=== PATIENT | female | born 1980 | race Caucasian/White ===

== ENCOUNTER 2022-07-25 08:14 | Emergency (ER) | payer OTHER, SELFPAY ==
--- NOTE | ~2022-07-25 | CT_ITS ---
EXAMINATION: CT abdomen pelvis wo IV con CLINICAL INFORMATION: Reason for Exam r flank pain, hematuria, r/o colic COMPARISON: No prior CT available for comparison. TECHNIQUE: Multidetector volumetric imaging was performed from the superior aspect of the liver through the pubic symphysis noncontrasted study Sagittal and coronal reformatted images were obtained on the technologist's workstation. This CT examination was performed using dose optimization techniques as appropriate, variously including the following: *Automated exposure control *Adjustment of mA and/or kV according to patient size (this includes techniques or standardized protocols for targeted exams where dose is matched to indication/reason for exam; i.e. extremities or head) *Use of iterative reconstruction technique DLP: 598 mGy-cm FINDINGS: LOWER THORAX: Included lung bases are clear. HEPATOBILIARY: No focal hepatic lesions. No biliary ductal dilatation. GALLBLADDER: Gallbladder unremarkable. SPLEEN: Spleen is normal in size. PANCREAS: No focal mass or ductal dilatation. STOMACH AND GASTROINTESTINAL TRACT: Postsurgical changes partial gastrectomy. Stomach is decompressed. There is no bowel distention or thickening. No CT evidence of appendicitis. ADRENALS: No adrenal nodules. KIDNEYS/URETERS: No hydronephrosis, stones or solid mass lesions. URINARY BLADDER: Partially decompressed. PELVIC VISCERA: There is an IUD in the uterus otherwise unremarkable, no free air or fluid. Rectum and perirectal fat are clear. PERITONEUM: No free air or fluid. LYMPH NODES: No lymphadenopathy. VASCULAR:Abdominal aorta normal in size, no aneurysm found. BONES, ABDOMINAL WALL AND SOFT TISSUES: Age-appropriate changes of the spine and skeletal system, no destructive osteolytic or osteosclerotic bone lesion found CT/CT abdomen pelvis wo IV con IMPRESSION: * No CT evidence of kidney stones or hydronephrosis. * No CT evidence of acute intra-abdominal process to explain patient's pain symptoms. * Postsurgical changes partial gastrectomy. * IUD in the uterus.
[2022-07-25 08:22] VITALS: BP 146/81; PULSE 83; RESP 18; TEMP 35.9; O2SAT 100; BMI 33.8
[2022-07-25 08:57] LABS: Appearance Urine Clear; Color Urine Yellow; Glucose Urine UA Negative (Negative); Leukocyte Esterase Urine Trace (Negative); Nitrite Urine Negative (Negative); PH 6.5 (5.0-9.0); Specific Gravity - Urine 1.025 (1.005-1.025); UMIC TRIGGER UACC YES; Urine Blood Large (3+) (Negative); Urine Ketones Negative (Negative); Urine Protein Negative (Neg-Trace)
[2022-07-25 08:59] LABS: Bacteria Urine Trace (None Seen); Hyaline Casts Urine 0-2 /LPF (0-2); RBC Urine >20 /HPF (0-2); WBC Urine 0-5 /HPF (0-5)
--- NOTE | 2022-07-25 09:19 | ED.BACK ---
HPI - Back Pain/Injury General Chief Complaint: Back Pain/Injury Stated Complaint: upper back pain Time Seen by Provider: 07/25/22 09:07 Source: patient Mode of arrival: ambulatory Limitations: no limitations History of Present Illness HPI Narrative: 39-year-old female healthy here with right flank pain since 02:00 with no nausea, vomiting, diarrhea, constipation, fevers, urinary symptoms. Patient denies chance of . Patient currently has IUD. Patient with no history of renal colic, pyelonephritis Related Data Previous Rx's Medication Instructions Recorded acetaminophen 325 mg tablet 650 mg PO Q4H PRN pain #30 tabs 07/25/22 (Tylenol) cyclobenzaprine 10 mg tablet 10 mg PO TID PRN muscle spasm #10 07/25/22 tabs lidocaine 5 % topical patch 1 patch topical DAILY #15 ea 07/25/22 (Lidoderm) Allergies Allergy/AdvReac Type Severity Reaction Status Date / Time No Known Allergies Allergy Unverified 04/09/20 19:43 [No Known Allergies*] Review of Systems Review of Systems: Yes all other systems are reviewed and are negative Constitutional: Constitutional: Reports no additional constitutional complaints, Denies body ache(s), Denies chills, Denies fever(s), Denies headache(s) and Denies weakness Eyes: Eyes: Reports no additional eye complaints and Denies change in vision ENT: Reports system reviewed and no additional complaints, except as documented, Denies dizziness, Denies headache(s), Denies nasal congestion, Denies nasal discharge and Denies neck pain Cardiovascular: Cardiovascular: Reports no additional cardiovascular complaints, Denies chest pain, Denies leg edema and Denies dyspnea Respiratory: Respiratory: Reports no additional respiratory complaints, Denies cough and Denies dyspnea Gastrointestinal: Gastrointestinal: Reports no additional gastrointestinal complaints, Denies abdominal pain, Denies diarrhea, Denies nausea and Denies vomiting Genitourinary: Genitourinary: Reports no additional female genitourinary complaints and Denies urinary incontinence Musculoskeletal: Musculoskeletal: Reports no additional musculoskeletal complaints, Reports back pain, Denies arthralgias, Denies joint swelling, Denies neck pain, Denies numbness and Denies tingling Integumentary/Breasts: Skin/Breast: Reports system reviewed and no additional complaints, except as docu and Denies rash Neurologic: Reports system reviewed and no additional complaints, except as documented, Denies Abnormal speech present, Denies dizziness, Denies headache(s), Denies numbness, Denies tingling and Denies weakness PMFSH Past Medical History Attestation statement: The following information was validated with the patient. Source: old records reviewed and nursing notes reviewed Social History Social History Alcohol intake: never Smoked in Last 30 Days: Yes Use of substances other than those prescribed or required for medical reasons: No Advance Directives: No Advance Directives Information Provided: No Patient : No Physical Exam Vital Signs: Vital Signs: Last Vital Signs Temp 96.7 F L 07/25/22 08:22 Pulse 83 07/25/22 08:22 Resp 18 07/25/22 08:22 BP 146/81 H 07/25/22 08:22 Pulse Ox 100 07/25/22 08:22 O2 Del Method 07/25/22 08:22 BMI result Body Mass Index 33.8 Const: General: cooperative, healthy appearing, comfortable and no acute distress Orientation/consciousness: patient oriented x3 Limitations: no limitations HEENT: Head: Yes normal to inspection Ears: hearing grossly normal bilaterally General nose exam: Normal external nose present Face and sinus: Yes normal facial exam Mouth: Normal oral and palatal mucosa present Throat: Yes posterior oropharynx normal Eyes: General: appearance normal, both eyes and all related structures Pupils: Equal, round and reactive pupils present Neck: Neck: Yes normal visual inspection Chest: Chest palpation & inspection: normal inspection of the chest Resp: Effort & Inspection: normal respiratory effort Auscultation: clear to auscultation bilaterally Cardio: Rate: regular rate Rhythm: regular rhythm Peripheral pulses: Peripheral pulses 2+ throughout GI: Inspection: Yes normal to inspection Palpation (GI): Soft to palpation and nontender Auscultation: normal bowel sounds : General: Yes no CVA tenderness (Right CVA tenderness) Back/Spine/Pelvis: Back: no CVA tenderness (Right CVA tenderness) Thoracic/Lumbar Spine: thoracic and lumbar spine normal to inspection Skin: General skin exam: no rashes or lesions noted Neuro: General: patient oriented x3, no focal motor deficits and normal sensation to monofilament Cranial nerves: Yes Equal, round and reactive pupils present Cognition (Neuro): normal cognition Speech: No Abnormal speech present Gait exam (Neuro): Normal gait present Motor exam (neuro): 5/5 motor strength present throughout Extrem: General: Yes normal to inspection Course Course Course Narrative: CT negative for any acute finding. Labs show microcytic anemia. Patient tells me this is normal for her. She has been anemic since having bariatric surgery several years ago in [place]. She is taking iron supplements. Patient denies any active bleeding. Patient reports she is due to get her menses any day. Microscopic hematuria may be secondary to this. This was explained to the patient. Pain may be musculoskeletal. Patient be discharged home muscle relaxant, acetaminophen, medicated patches. Patient should follow-up with primary care doctor for any continued symptoms. She should return for any worsening symptoms. Medications Administered Discontinued Medications Generic Name Dose Route Start Last Admin Trade Name Freq PRN Reason Stop Dose Admin Ketorolac Tromethamine 30 mg 07/25/22 09:12 07/25/22 09:30 Ketorolac Tromethamine 30 Mg/Ml Vial IVPUSH 07/25/22 09:13 30 mg ONCE ONE Administration Medical Decision Making Medical Decision Making [facility] Narrative: 42-year-old female here with atraumatic right flank pain since 02:00 Moderate right CVA tenderness Likely renal colic Consider pyelonephritis or musculoskeletal pain Will check labs, UA, CT. Will provide analgesia Differential Diagnosis Differential Diagnoses: The differential diagnosis associated with the presentation includes Renal colic, pyelonephritis, musculoskeletal pain Low concern for epidural abscess with no reports of IV drug abuse, immunocompromised state, fever, neurological findings on exam. Low concern for cord compression, Low concern for AAa Lab Data [facility] Lab Attestation statement: I reviewed the patient's lab results. Result Diagrams: 07/25/22 09:16 07/25/22 09:16 Labs: Lab Results 07/25/22 07/25/22 07/25/22 Range/Units 08:49 08:49 09:16 WBC 9.5 (4.8-10.8) X10*3/uL RBC 5.22 (4.20-5.50) X10*6/uL Hgb 9.6 L (12.0-16.0) g/dl Hct 34.4 L (37.0-47.0) % MCV 65.9 L (80.0-98.0) fL MCH 18.4 L (27.0-33.0) pg MCHC 27.9 L (31.0-35.0) g/dl RDW 21.6 H (11.0-16.0) % Plt Count 298 (160-400) X10*3/uL MPV 10.3 (9.4-12.3) fL Immature Gran % (Auto) 0.3 (0.0-0.4) % Neut % (Auto) 76.1 H (45-73) % Lymph % (Auto) 17.3 L (20-40) % Boundary % (Auto) 4.3 (2-11) % Eos % (Auto) 1.5 (0-4) % Baso % (Auto) 0.5 (0-2) % Lymph # (Auto) 1.6 (1.2-4.9) X10*3/uL Boundary # (Auto) 0.4 (0.1-1.2) X10*3/uL Eos # (Auto) 0.1 (0.0-0.4) X10*3/uL Baso # (Auto) 0.1 (0.0-0.2) X10*3/uL Abs Immat Gran (auto) 0.03 (0.00-0.03) X10*3/uL Absolute Neuts (auto) 7.2 (2.0-8.3) x10*3/uL Absolute Nucleated RBC 0.000 (0.0-0.012) X10*3/uL Nucleated RBC % (auto) 0.0 (0.0-0.2) /100WBC Sodium (135-145) mmol/L Potassium (3.3-5.1) mmol/L Chloride (96-108) mmol/L Carbon Dioxide (22-29) mmol/L Anion Gap (12-20) BUN (9-16) mg/dL Creatinine (0.5-1.4) mg/dL Estim Creat Clear Calc Estimated GFR Random Glucose (60-115) mg/dL Calcium (8.4-10.2) mg/dL Total Bilirubin (0.0-1.0) mg/dL Direct Bilirubin (0.0-0.5) mg/dL AST (5-31) U/L ALT (0-31) U/L Alkaline Phosphatase (39-117) U/L Total Protein (6.5-8.0) g/dL Albumin (3.5-5.0) g/dL Urine Color Yellow Urine Appearance Clear Urine pH 6.5 (5.0-9.0) Ur Specific [place] 1.025 (1.005-1.025) Urine Protein Negative (Neg-Trace) mg/dL Urine Glucose (UA) Negative (Negative) mg/dL Urine Ketones Negative (Negative) mg/dL Urine Blood Large (3+) H (Negative) Urine Nitrite Negative (Negative) Ur Leukocyte Esterase Trace H (Negative) Urine RBC >20 H (0-2) /HPF Urine WBC 0-5 (0-5) /HPF Ur Squamous Epith Cells 6-10 (0-2) /HPF Urine Bacteria Trace (None Seen) Hyaline Casts 0-2 (0-2) /LPF Urine Test NEGATIVE (NEGATIVE) 07/25/22 Range/Units 09:16 WBC (4.8-10.8) X10*3/uL RBC (4.20-5.50) X10*6/uL Hgb (12.0-16.0) g/dl Hct (37.0-47.0) % MCV (80.0-98.0) fL MCH (27.0-33.0) pg MCHC (31.0-35.0) g/dl RDW (11.0-16.0) % Plt Count (160-400) X10*3/uL MPV (9.4-12.3) fL Immature Gran % (Auto) (0.0-0.4) % Neut % (Auto) (45-73) % Lymph % (Auto) (20-40) % Boundary % (Auto) (2-11) % Eos % (Auto) (0-4) % Baso % (Auto) (0-2) % Lymph # (Auto) (1.2-4.9) X10*3/uL Boundary # (Auto) (0.1-1.2) X10*3/uL Eos # (Auto) (0.0-0.4) X10*3/uL Baso # (Auto) (0.0-0.2) X10*3/uL Abs Immat Gran (auto) (0.00-0.03) X10*3/uL Absolute Neuts (auto) (2.0-8.3) x10*3/uL Absolute Nucleated RBC (0.0-0.012) X10*3/uL Nucleated RBC % (auto) (0.0-0.2) /100WBC Sodium 137 (135-145) mmol/L Potassium 4.4 (3.3-5.1) mmol/L Chloride 104 (96-108) mmol/L Carbon Dioxide 25 (22-29) mmol/L Anion Gap 12 (12-20) BUN 18 H (9-16) mg/dL Creatinine 0.63 (0.5-1.4) mg/dL Estim Creat Clear Calc 98.0 Estimated GFR > 60 Random Glucose 103 (60-115) mg/dL Calcium 8.8 (8.4-10.2) mg/dL Total Bilirubin 0.4 (0.0-1.0) mg/dL Direct Bilirubin < 0.2 (0.0-0.5) mg/dL AST 16 (5-31) U/L ALT 14 (0-31) U/L Alkaline Phosphatase 49 (39-117) U/L Total Protein 6.9 (6.5-8.0) g/dL Albumin 4.2 (3.5-5.0) g/dL Urine Color Urine Appearance Urine pH (5.0-9.0) Ur Specific [place] (1.005-1.025) Urine Protein (Neg-Trace) mg/dL Urine Glucose (UA) (Negative) mg/dL Urine Ketones (Negative) mg/dL Urine Blood (Negative) Urine Nitrite (Negative) Ur Leukocyte Esterase (Negative) Urine RBC (0-2) /HPF Urine WBC (0-5) /HPF Ur Squamous Epith Cells (0-2) /HPF Urine Bacteria (None Seen) Hyaline Casts (0-2) /LPF Urine Test (NEGATIVE) Independent Interpretation I performed an independent interpretation of an: CT Scan Interpretation: No acute finding Radiology Impression Discussion of test interpretation with radiology: I have reviewed the radiologist's reading. Radiologist Impression: FINDINGS: LOWER THORAX: Included lung bases are clear. HEPATOBILIARY: No focal hepatic lesions. No biliary ductal dilatation. GALLBLADDER: Gallbladder unremarkable. SPLEEN: Spleen is normal in size. PANCREAS: No focal mass or ductal dilatation. STOMACH AND GASTROINTESTINAL TRACT: Postsurgical changes partial gastrectomy. Stomach is decompressed. There is no bowel distention or thickening. No CT evidence of appendicitis. ADRENALS: No adrenal nodules. KIDNEYS/URETERS: No hydronephrosis, stones or solid mass lesions. URINARY BLADDER: Partially decompressed. PELVIC VISCERA: There is an IUD in the uterus otherwise unremarkable, no free air or fluid. Rectum and perirectal fat are clear. PERITONEUM: No free air or fluid. LYMPH NODES: No lymphadenopathy. VASCULAR:Abdominal aorta normal in size, no aneurysm found. BONES, ABDOMINAL WALL AND SOFT TISSUES: Age-appropriate changes of the spine and skeletal system, no destructive osteolytic or osteosclerotic bone lesion found CT/CT abdomen pelvis wo IV con IMPRESSION: ? *? No CT evidence of kidney stones or hydronephrosis. ? *? No CT evidence of acute intra-abdominal process to explain patient's pain symptoms. ? *? Postsurgical changes partial gastrectomy. ? Discharge Plan Discharge Clinical Impression: Back pain Patient Disposition: Home, Self-Care Instructions: Back Pain (ED) Additional Instructions: You are mildly anemic. Continue your iron supplement. You do have some blood in your urine which can happen around her menses Your CT scan looks normal Take medications as prescribed Return for worsening symptoms Follow-up with primary care doctor for any continued symptoms Prescriptions: New cyclobenzaprine 10 mg tablet 10 mg PO TID PRN (Reason: muscle spasm) Qty: 10 0RF lidocaine [Lidoderm] 5 % adhesive patch,medicated 1 patch topical DAILY Qty: 15 0RF Rx Instructions: leave on most painful area for up to 12 hrs acetaminophen [Tylenol] 325 mg tablet 650 mg PO Q4H PRN (Reason: pain) Qty: 30 0RF Referrals: Physician,None [Primary Care Provider] - Interventions: ED Discharge Assessment Last Done: 07/25/22 12:23 Discharge Date/Time: 07/25/22 12:23
[2022-07-25] MEDS: Ketorolac Tromethamine 30 MG/ML VIAL IVPUSH (09:30)
[2022-07-25 09:32] LABS: MANUAL DIFF FLAG NO
[2022-07-25 09:32] LABS: UPreg QC Valid YES; Urine Pregnancy NEGATIVE (NEGATIVE)
[2022-07-25 09:39] LABS: Basophils Absolute Auto 0.1 X10*3/uL (0.0-0.2); Basophils Percent Auto 0.5 % (0-2); Eosinophils Absolute Auto 0.1 X10*3/uL (0.0-0.4); Eosinophils Percent Auto 1.5 % (0-4); Hematocrit 34.4 % (37.0-47.0); Hemoglobin 9.6 g/dl (12.0-16.0); Imm Gran Abs Auto 0.03 X10*3/uL (0.00-0.03); Imm Gran Pct Auto 0.3 % (0.0-0.4); Lymphocytes Absolute Auto 1.6 X10*3/uL (1.2-4.9); Lymphocytes Percent Auto 17.3 % (20-40); Mean Corpuscular HGB Conc 27.9 g/dl (31.0-35.0); Mean Corpuscular Hemoglobin 18.4 pg (27.0-33.0); Mean Corpuscular Volume 65.9 fL (80.0-98.0); Mean Platelet Volume 10.3 fL (9.4-12.3); Monocytes Absolute Auto 0.4 X10*3/uL (0.1-1.2); Monocytes Percent Auto 4.3 % (2-11); Neutrophils Absolute Auto 7.2 x10*3/uL (2.0-8.3); Neutrophils Percent Auto 76.1 % (45-73); Platelet Count 298 X10*3/uL (160-400); Red Blood Count 5.22 X10*6/uL (4.20-5.50); Red Cell Distribution Width 21.6 % (11.0-16.0); White Blood Count 9.5 X10*3/uL (4.8-10.8)
[2022-07-25 09:58] LABS: Alanine Aminotransferase 14 U/L (0-31); Albumin Level 4.2 g/dL (3.5-5.0); Alkaline Phosphatase 49 U/L (39-117); Anion Gap 12 (12-20); Aspartate Amino Transferase 16 U/L (5-31); Bilirubin Direct < 0.2 mg/dL (0.0-0.5); Bilirubin Total 0.4 mg/dL (0.0-1.0); Blood Urea Nitrogen 18 mg/dL (9-16); Calcium 8.8 mg/dL (8.4-10.2); Carbon Dioxide 25 mmol/L (22-29); Chloride 104 mmol/L (96-108); Estimated Glomerular Filt Rate > 60; Glucose Random 103 mg/dL (60-115); Potassium 4.4 mmol/L (3.3-5.1); Sodium 137 mmol/L (135-145); Total Protein 6.9 g/dL (6.5-8.0)
== END 2022-07-25 12:23 | disposition home or self-care (01) ==
PROVIDERS: Nurse Practitioner Family; Emergency Provider Student in an Organized Health Care Education/Training Program
DX: R10.9 Unspecified abdominal pain (principal)
CPT/HCPCS: 74176; 80048; 80076; 81001; 81025; 85025; 96374; 99284; J1885

== ENCOUNTER 2025-01-09 10:59 | Outpatient (AMB) | payer OTHER, SELFPAY ==
--- NOTE | 2025-01-09 11:04 | A.OFFPC_ITS ---
Vital Signs 01/09/25 11:15 Height 4 ft 10 in Weight 200 lb 6 oz BMI 41.9 BP 128/78 Blood Pressure Location Rt brachial Position Sitting Respiration 12 Pulse 82 Pulse Source Pulse Oximeter Temp 97.6 F Temp Source Oral Pulse Oximetry (%) 98 Oxygen Delivery Method Room Air Intake Visit Reasons: CPE Intake Note: New patient to establish care and cpe. Patient has not seen a MD for more than 5 years and thinks he thyroid is off levels and patient also gained 70 lbs in 6 months. [employer] Required: No Allergies Penicillins Allergy (Severe, Verified 01/09/25 11:25) Rash Sulfa (Sulfonamide Antibiotics) Allergy (Severe, Verified 01/09/25 11:25) Rash Medication List - Last Reconciled 01/09/25 by SAGE Andres No Known Home Meds Tobacco use date assessed: 01/09/25 Dental Screening Dental Screen Date: 01/09/25 Did you have a dental visit in the last 12 months?: No Did you have a dental problem in the last 6 months where you did not have access to dental care?: No Was dental information given to patient?: Patient has dentist HPI HPI Comments History of Present Illness Details 44 y/o F with anemia, obesity, current s moker (1 PPD, 30 pack year hx), family hx of breast ca s/p partial gastrectomy 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 Reports hx of low thyroid. No meds currently. Current smoker - 30 pack year hx Taking Iodine supplements to help her thryoid, buying OTC Iron def anemia - taking supplements Taking fish oil for wellness, Zinc , Selenium, Berberine, Ginseng and Ginko Feels dizzy and overall unwell. Fell out of care. 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 This includes time spent before the visit reviewing the chart, time spent during the visit, and time spent after the visit on documentation, reviewing laboratory results, diagnostic imaging, medications, performing a medically necessary evaluation, counseling on diagnoses, care coordination, ordering appropriate tests, ordering appropriate medications, review of tests performed by other providers, reporting test results with the patient, communication with other healthcare providers. [facility] Medical History (Updated 01/09/25 @ 11:51 by Pam Townsend [facility]) ADHD Asthma Thyroid disorder Surgical History (Updated 01/09/25 @ 11:28 by Pam Townsend [facility]) Gastric bypass status for obesity (~2009) Previous section Family History (Updated 01/09/25 @ 11:22 by Ne Mccann MA) Father Cancer Social History (Updated 01/09/25 @ 11:04 by Ne Mccann MA) Housing: House Alcohol intake: never Patient Tobacco Use Status: Current everyday Tobacco user Cigarette Packs Per Day: 1 Cigarettes Per Day: 20 Years Smoked: 32 e-Cigarette/Vaping Use: Never Used Second Hand Smoke Exposure: No Current occupational status: employed 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 1. Little interest or pleasure in doing things: not at all 2. Feeling down, depressed, or hopeless: not at all 3. Trouble falling or staying asleep, or sleeping too much: not at all 4. Feeling tired or having little energy: not at all 5. Poor appetite or overeating: not at all 6. Feeling bad about yourself - or that you are a failure or have let yourself or your family down: not at all 7. Trouble concentrating on things, such as reading the newspaper or watching television: nearly every day 8. Moving or speaking so slowly that other people could have noticed. Or the opposite - being so fidgety or restless that you have been moving around a lot more than usual: not at all 9. Thoughts that you would be better off or of hurting yourself in some way: not at all Total score: 3 Depression Screening Interpretation: Negative Depression Screening Done: Yes 24592 - PHQ-9 Billing: Yes Source: Developed by Drs. Darek Jones, Vaishnavi Fernández, Kishore Sanford and colleagues, with an educational jose d from [employer]. Thrive Questionnaire Date Thrive assessed: 01/09/25 I am a: Patient What is your living situation today?: I have a steady place to live Within the past 12 months, did the food you bought not last and you didn't have the money to get more?: Never true Within the past 12 months, did you worry whether your food would run out before you got money to buy more?: Never true Do you have trouble paying for medicines?: No Do you have trouble getting transportation to medical appointments?: No Do you have trouble paying your heating and electricity bill?: No Do you have trouble taking care of your child, family member or friend?: No Do you have trouble with day-to-day activities such as bathing, preparing meals, shopping, managing finances, etc.?: No Are you currently unemployed and looking for a job?: No Are you interested in more education?: Yes Please select the resources that you would like help with: None Currently or been in a relationship where the following occur: No concerns reported THRIVE Score: 0 AUDIT C Alcohol Use Questionnaire (AUDIT-C) 1. How often do you have a drink containing alcohol?: Never 3. How often do you have six or more drinks on one occasion?: Never Total Score: 0 Score Reviewed/Action Taken: Yes VAHID-7 AMB Questionnaire VAHID-7 Date VAHID - 7 assessed: 01/09/25 Feeling nervous, anxious, or on edge: 0 = Not at all Not being able to stop or control worryin = Several days Worrying too much about different things: 1 = Several days Trouble relaxin = Several days Being so restless that it is hard to sit still: 1 = Several days Becoming easily annoyed or irritable: 0 = Not at all Feeling afraid as if something awful might happen: 1 = Several days Total VAHID-7 score (0-4 normal; 5-9 mild; 10-14 moderate; 15-21 severe): 5 Source: Developed by Drs. Darek Jones, Vaishnavi Fernández, Kishore Sanford and colleagues, with an educational jose d from [employer]. VAHID-7 Assessment Billing VAHID-7 Assessment Tool: VAHID-7 Assessment 91011 ACT Questionnaire In the past 4 weeks, how much of the time did your asthma keep you from getting as much done at work, school or at home?: None of the time During the past 4 weeks, how often have you had shortness of breath?: Not at all During the past 4 weeks, how often did your asthma symptoms wake you up at night or earlier than usual in the morning?: Not at all During the past 4 weeks, how often have you had to use your rescue inhaler or nebulizer medication?: Not at all How would you rate your asthma control during the past 4 weeks?: Completely controlled ACT Interpretation: Negative Score: 25 Physical exam (Primary Care) Vital Signs: Last Vital Signs Temp 97.6 F 01/09/25 11:15 Pulse 82 01/09/25 11:15 Resp 12 01/09/25 11:15 BP 128/78 01/09/25 11:15 Pulse Ox 98 01/09/25 11:15 Oxygen Delivery Method Room Air 01/09/25 11:15 BMI result Body Mass Index 41.9 BMI Assessment/Plan discussion: High BMI High, discussed plan: lifestyle Tobacco/Smoking Status: Tobacco use Status Tobacco use date assessed 01/09/25 01/09/25 11:07 Patient Tobacco Use Status Current everyday Tobacco 01/09/25 11:18 e-Cigarette/Vaping Use Never Used 01/09/25 11:07 Are you ready to quit: Yes Tobacco cessation counseling provided: Yes Relapse Prevention: discussed the importance of a supportive environment, discussed extending NRT, discussed negative mood or depression after quitting, weight gain after smoking is common and discussed dietary, exercise and/or lifestyle changes Number of minutes spent counselin CPT code: 81998 - 4-10 Minutes PHQ-9: PHQ-9 Score PHQ-9: Total score 3 01/09/25 11:28 Depression Screening Interpretation: Negative Thrive Assessment: Date of Thrive Assessment Date Thrive assessed 01/09/25 01/09/25 11:07 Currently or been in a relationship where the following occur: No concerns reported Coding Level of Care Code New Pt Level 4 (62174) Complex EM visit Add On G2211 Diagnoses Encounter to establish care Z76.89 Obesity, morbid, BMI 40.0-49.9 E66.01 S/P partial gastrectomy Z90.3 Iron deficiency anemia, unspecified iron deficiency anemia type D50.9 Iron deficiency anemia type: unspecified iron deficiency Current smoker F17.200 Mild intermittent asthma without complication J45.20 Asthma complication type: uncomplicated Dizziness R42 IUD (intrauterine device) in place Z97.5 Family history of breast cancer Z80.3 Additional Codes VAHID-7 Assessment Billing - VAHID-7 Assessment Tool: VAHID-7 Assessment 53581 ([id number]) PHQ-9 - 73281 - PHQ-9 Billing: Yes ([id number]) Vital Signs *Quality* - CPT code: 24392 - 4-10 Minutes ([id number]) Asthma Control Questionnaire - ACT Interpretation: Negative ([id number]) Assessment & Plan Assessment & Plan (1) Encounter to establish care: Code(s): Z76.89 - Persons encountering health services in other specified circumstances (2) Obesity, morbid, BMI 40.0-49.9: Code(s): E66.01 - Morbid (severe) obesity due to excess calories Category: Medical (3) S/P partial gastrectomy: Code(s): Z90.3 - Acquired absence of stomach [part of] Category: Surgical (4) Iron deficiency anemia: Code(s): D50.9 - Iron deficiency anemia, unspecified Category: Medical Qualifiers: Iron deficiency anemia type: unspecified iron deficiency Qualified Code(s): D50.9 - Iron deficiency anemia, unspecified (5) Current smoker: Code(s): F17.200 - Nicotine dependence, unspecified, uncomplicated Category: Social Hx (6) Mild intermittent asthma: Code(s): J45.20 - Mild intermittent asthma, uncomplicated Category: Medical Qualifiers: Asthma complication type: uncomplicated Qualified Code(s): J45.20 - Mild intermittent asthma, uncomplicated (7) Dizziness: Code(s): R42 - Dizziness and giddiness Category: Medical (8) IUD (intrauterine device) in place: Code(s): Z97.5 - Presence of (intrauterine) contraceptive device Category: Medical (9) Family history of breast cancer: Comment: 3 paternal aunts Code(s): Z80.3 - Family history of malignant neoplasm of breast Category: Medical Plan . Orders: Orders Complete Blood Count no Diff Today D50.9 - Iron deficiency anemia, unspecified, E66.01 - Morbid (severe) obesity due to excess calories, R42 - Dizziness and giddiness, Z90.3 - Acquired absence of stomach [part of] Ferritin Today D50.9 - Iron deficiency anemia, unspecified, E66.01 - Morbid (severe) obesity due to excess calories, R42 - Dizziness and giddiness, Z90.3 - Acquired absence of stomach [part of] TSH reflex Free T4 Today D50.9 - Iron deficiency anemia, unspecified, E66.01 - Morbid (severe) obesity due to excess calories, R42 - Dizziness and giddiness, Z90.3 - Acquired absence of stomach [part of] Vitamin B12 and Folate Today D50.9 - Iron deficiency anemia, unspecified, E66.01 - Morbid (severe) obesity due to excess calories, R42 - Dizziness and giddiness, Z90.3 - Acquired absence of stomach [part of] Vitamin D 25-OH Total Today D50.9 - Iron deficiency anemia, unspecified, E66.01 - Morbid (severe) obesity due to excess calories, R42 - Dizziness and giddiness, Z90.3 - Acquired absence of stomach [part of] Iodine, Serum/Plasma Today D50.9 - Iron deficiency anemia, unspecified, E66.01 - Morbid (severe) obesity due to excess calories, R42 - Dizziness and giddiness, Z90.3 - Acquired absence of stomach [part of] Zinc Today D50.9 - Iron deficiency anemia, unspecified, R42 - Dizziness and giddiness Copper, serum Today D50.9 - Iron deficiency anemia, unspecified, R42 - Dizziness and giddiness MM tomosynthesis screening BI Today Z12.31 - Encounter for screening mammogram for malignant neoplasm of breast Comprehensive Met. Panel Today D50.9 - Iron deficiency anemia, unspecified, E66.01 - Morbid (severe) obesity due to excess calories, R42 - Dizziness and giddiness, Z90.3 - Acquired absence of stomach [part of] Hemoglobin A1c Today D50.9 - Iron deficiency anemia, unspecified, E66.01 - Morbid (severe) obesity due to excess calories, R42 - Dizziness and giddiness, Z90.3 - Acquired absence of stomach [part of] IRON PROFILE Today D50.9 - Iron deficiency anemia, unspecified, E66.01 - Morbid (severe) obesity due to excess calories, R42 - Dizziness and giddiness, Z90.3 - Acquired absence of stomach [part of] Lipid Panel Today D50.9 - Iron deficiency anemia, unspecified, E66.01 - Morbid (severe) obesity due to excess calories, R42 - Dizziness and giddiness, Z90.3 - Acquired absence of stomach [part of] Microalbumin, Random (w Creat) Today D50.9 - Iron deficiency anemia, unspecified, E66.01 - Morbid (severe) obesity due to excess calories, R42 - Dizziness and giddiness, Z90.3 - Acquired absence of stomach [part of] 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 Family members, friends, and co-workers may be supportive or encouraging, but to be successful the desire and commitment to quit must be your own. Most people who have been able to successfully quit smoking made at least one unsuccessful attempt in the past. Try not to view past attempts to quit as failures, but rather as learning experiences. Stopping smoking or using smokeless tobacco is difficult, but anyone can do it. Know the symptoms to expect when you stop. Common symptoms include: ? An intense craving for nicotine ? Anxiety, tension, restlessness, frustration, or impatience ? Difficulty concentrating ? Drowsiness or trouble sleeping, as well as bad dreams and nightmares ? Drowsiness and trouble sleeping ? Headaches ? Increased appetite and weight gain ? Irritability or depression How severe your symptoms are depends on how long you smoked and how many cigarettes you smoked each day. Feel ready to quit? ? First and foremost, set a quit date and quit completely on that day. Before your quit date, you may begin reducing your cigarette use. But remember, there is no safe level of cigarette smoking. ? List the reasons why you want to quit. Include both short- and long-term benefits. ? Identify the times you are most likely to smoke. For example, do you tend to smoke when feeling stressed or down? When out at night with friends? While drinking coffee or alcohol? When bored? While driving? Right after a meal or sex? During a work break? While watching TV or playing cards? When you are with other smokers? ? Let all of your friends, family, and co-workers know of your plan to stop smoking and your quit date. Just being aware that they know what you're going through can be helpful, especially when you are grumpy. ? Get rid of all your cigarettes just before the quit date, and clean out anything that smells like smoke, such as clothes and furniture. Make a plan about what you will do instead of smoking at those times when you are most likely to smoke. ? Be as specific as possible. For example, drink tea instead of coffee -- tea may not trigger the desire for a cigarette. Or, take a walk when you feel stressed. ? Remove ashtrays and cigarettes from the car. Place pretzels or hard candies there instead. Pretend-smoke with a straw. ? Find activities that focus your hands and mind but are not taxing or fattening. Computer games, solitaire, knitting, sewing, and crossword puzzles may help. ? If you normally smoke after eating, find other ways to end a meal. Play a tape or CD, eat a piece of fruit, get up and make a phone call, or take a walk (a good distraction that also dubon calories). Make other changes in your lifestyle. ? Change your daily schedule and habits. Eat at different times or eat several small meals instead of three large ones. Sit in a different chair or even a different room. ? Satisfy your oral habits by eating celery or other low-calorie snack, chewing sugarless gum, or sucking on a cinnamon stick. ? Go to public places and restaurants where smoking is prohibited or restricted. ? Eat regular meals and don't eat too much candy or sweet things. ? Get more exercise. Take walks or ride a bike. Exercise helps relieve the urge to smoke. Set short-term quitting goals and reward yourself when you meet them. ? Every day, put the money you normally spend on cigarettes in a jar. Then buy something pleasurable after a period of time. ? Try not to think about all the days ahead you will need to avoid smoking. Take it one day at a time. ? Even one puff or one cigarette will make your desire for more cigarettes even stronger. However, it is normal to make mistakes. So even if you have one cigarette, you don't need to take the next one. Other tips to help you quit smoking and stick to it: ? Enroll in a smoking cessation program (hospitals, health departments, community centers, and work sites often offer programs). Learn about self-hypnosis or other techniques. ? Ask your health care provider about prescription medications that are safe and appropriate for you. ? Find out about nicotine patches, gum, and sprays. The [place] [employer]'s web site -- www.cancer.org -- is an excellent resource for smokers who are trying to quit, and the [employer] [place] [employer] can help some smokers kick the habit. Above all, don't get discouraged if you aren't able to quit smoking the first time. Nicotine addiction is a hard habit to break. Try something different next time. Develop new strategies, and try again. Many people take several attempts to finally kick the habit. Walk-In Care (Urgent Care): We Make it Easy Walk-in for urgent medical issues such as: ? Seasonal Allergies ? Insect Bites ? Cough ? Diarrhea ? Acute Asthma Attacks ? Back, Knee or Joint Pain ? Ear Infection ? Fever without a Rash ? Headaches ? Nausea ? [place], Rash or Skin Irritation ? Sore Throat ? Sports Physicals ? Vomiting Most insurances are accepted. Patients do not need to be part of the [facility] to seek care at the walk-in clinic. Locations [facility] , [place] [address] ? [phone] [facility] Walk-In Care in [place] provides services to ages 18 and over. Open Monday-Monday: 8 a.m. to 5 p.m. and Monday: 9 a.m. to 3 p.m.* *Hours may vary due to staffing availability. To confirm Walk-In Care hours in [place], please call [phone]. [address] [facility], [place] [address] ? [phone] [facility] Walk-In Care in [place] provides services to ages 12 and over. Open Monday-Monday: 8 a.m. to 5 p.m. Hours may vary due to staffing availability. To confirm Walk-In Care hours in [place], please call [phone]. LABORATORY SERVICES: [facility] Lab ? Primary Location [address] [place] [address] Monday through Monday 6:00 AM ? 5:00 PM Monday 7:00 AM ? 11:00 AM* [phone] The [facility] is centrally located near the front entrance of the [facility] for easy outpatient access. Convenient parking is provided for outpatients. *Hours may vary due to staffing availability. To confirm Laboratory hours for any location, please call [phone]. Offsite Location For your convenience, we offer offsite laboratory draw stations at the following locations: [address] [place] [address] ? [address], [address] Monday through Monday 7:30 AM ? 1:00 PM* [phone] *Hours may vary due to staffing availability. To confirm Laboratory hours for any location, please call [phone]. [place] ? [address] Monday through Monday 6:00 AM ? 3:30 PM* Monday 6:30 AM ? 3 PM* [phone] *Hours may vary due to staffing availability. To confirm Laboratory hours for any location, please call [phone] [place] [address] Monday through Monday 7:30 AM ? 4:00 PM* [phone] *Hours may vary due to staffing availability. To confirm Laboratory hours for any location, please call [phone] [place] [address] Monday through 9:00 AM ? 4:00 PM* *Hours may vary due to staffing availability. To confirm Laboratory hours for any location, please call [phone]. Appointments are not necessary. Walk-ins are welcome. Like all the departments throughout the [facility], our Lab undergoes frequent reviews to ensure the quality and accuracy of test results, and our staff takes special pride in its status as a nationally accredited facility. Patient Portal: ONE PATIENT. ONE RECORD. BETTER CARE. [facility] has a fully integrated, cutting- edge mobile electronic health information system that has revolutionized the way we care for our patients and manage our organization. This system improves communication and coordination enabling us to provide safe, higher-quality care, and an overall positive experience for staff and patients. Our first priority, as always, is to deliver the highest quality care possible. The system is running in the background supporting that priority. This portal is for all [facility] services and practices. If you are experiencing any technical difficulties with enrolling or logging into the Patient Portal please complete the [facility] Patient Portal Technical Support Form. [facility] now offers a new secure on-line interactive tool for patients to review their health information ? Patient Portal. This interactive web portal will enable patients and their families to take an active role in their care by providing easy, secure access to their health information via the internet. The Patient Portal provides patients with instant access to their health information, including laboratory results, medications, allergies, demographic information, visit history, and more. In addition to managing their own care, parents and health care proxies with authorized consent will appreciate the ability to access the records of those individuals for whom they provide care. Please note: if you wish to gain access (Proxy) to another patient?s portal, you will be required to come to the Medical Records Department in person at [facility]. Both the patient giving proxy access and the proxy will need to provide photo identification and complete the appropriate authorization. The Patient Portal also allows track their appointments online. The [facility] Patient Portal also saves patients time by allowing them to submit updates to their demographic and contact information prior to their visits. Por nazanin email notifications will also alert patients to any new activity on their portal, such as test results and new appointments. In order to initially enroll in the [facility] Patient Portal, you will need to enter some required information including the following: ? your [facility] Medical Record number ? your personal home email address ? name ? date of Please note: In order to enroll in the [facility] Patient Portal, we need to have your email address on file in your electronic medical record. The email address needs to be specific for one person (yourself) in order for your Portal enrollment to be successful. You can update your email address in person with our Registration staff when you are registering for a hospital visit. Otherwise, you will need to come to the Health Information Management (Medical Records) Department at [facility]. We are open from Monday ? Monday from 7:30 a.m. ? 4:30 p.m. You will be required to present a photo id. Once you have successfully enrolled in the Patient Portal, you will receive a one-time user id and password for the Portal, sent to your email address. This will allow you to log into the Patient Portal within 99 hrs and reset your own logon id and password, and define personal security questions. Once your permanent login and password have been set, you can log into the [facility] Patient Portal at any time via the blue button above or from the Portal Logon button on any page of the [facility] website. [facility] and [facility] encourage all of our patients to enroll in Patient Portal as it presents a valuable opportunity for patients and their families to actively participate in their care and stay healthy Welcome to [facility]. We look forward to working with you.
[2025-01-09 11:15] VITALS: BP 128/78; PULSE 82; RESP 12; TEMP 36.4; O2SAT 98; BMI 41.9
--- OUTSIDE RECORDS SUMMARY | 2025-01-09 12:37 | XMS_ITS | Encounter Summary ---
Author Organization [facility] and [facility] Address [address] [place] [address] Care Team Providers Care Vest Presser Name Role Phone Unavailable Primary Care Provider Unavailabl e Encounter Details Date Type Department Care Team (Late st Contact Info) Description 06/01/2015 Scanned Document [facility] at [address] [place] [address] [id number] External, Provider Social History Tobacco Use Types Packs/Day Years Used Date Smoking Tobacco: Every Day Cigarettes 0.5 14 Alcohol Use Standard Drinks/Week Comments No 0 (1 standard drink = 0.6 oz pur e alcohol) Comments Unknown Sex and Gender Information Value Date Recorded Sex Assigned at Not on file Legal Sex Female 5:32 PM EST Gender Identity Not on file Sexual Orientation Not on file documented as of this encounter Plan of Treatment Not on file documented as of this encounter Visit Diagnoses Not on filedocumented in this encounter
== END 2025-01-09 11:52 | disposition home or self-care (01) ==
LOC: HO.HMCFM 11:00
PROVIDERS: PCP Nurse Practitioner Family; Visit Provider Nurse Practitioner Family
DX: D50.9 Iron deficiency anemia, unspecified (principal); E66.01 Morbid (severe) obesity due to excess calories; Z68.41 Body mass index [BMI] 40.0-44.9, adult; F17.210 Nicotine dependence, cigarettes, uncomplicated; Z76.89 Persons encountering health services in other specified circumstances; Z90.3 Acquired absence of stomach [part of]; J45.20 Mild intermittent asthma, uncomplicated; R42 Dizziness and giddiness; Z97.5 Presence of (intrauterine) contraceptive device; Z80.3 Family history of malignant neoplasm of breast

== ENCOUNTER → 2025-01-09 10:59 | Outpatient (BNVA) | payer OTHER, SELFPAY | PROVIDERS: PCP Nurse Practitioner Family; Visit Provider Nurse Practitioner Family | DX: E66.01 Morbid (severe) obesity due to excess calories (principal); D50.9 Iron deficiency anemia, unspecified; J45.20 Mild intermittent asthma, uncomplicated; R42 Dizziness and giddiness; F17.210 Nicotine dependence, cigarettes, uncomplicated; Z90.3 Acquired absence of stomach [part of]; Z97.5 Presence of (intrauterine) contraceptive device; Z80.3 Family history of malignant neoplasm of breast; Z76.89 Persons encountering health services in other specified circumstances | CPT/HCPCS: 96127; 96160 ==

== ENCOUNTER 2025-01-16 09:17 | Outpatient (REF) | payer OTHER, SELFPAY ==
[2025-01-16 09:45] LABS: Hematocrit 33.2 % (37.0-47.0); Hemoglobin 9.4 g/dl (12.0-16.0); Mean Corpuscular HGB Conc 28.3 g/dl (31.0-35.0); Mean Platelet Volume 10.4 fL (9.4-12.3); Platelet Count 307 X10*3/uL (160-400); Red Blood Count 5.21 X10*6/uL (4.20-5.50); Red Cell Distribution Width 21.3 % (11.0-16.0); White Blood Count 8.1 X10*3/uL (4.8-10.8)
[2025-01-16 09:55] LABS: Mean Corpuscular Volume 63.7 fL (80.0-98.0)
--- OUTSIDE RECORDS SUMMARY | 2025-01-16 10:10 | XMS_ITS | Encounter Summary ---
Author Organization [facility] and [facility] Address [address] [place] [address] Care Team Providers Care Caterers Helper Name Role Phone Unavailable Primary Care Provider Unavailabl e Encounter Details Date Type Department Care Team (Late st Contact Info) Description 06/01/2015 Scanned Document [facility] at [address] [place] [address] [phone] External, Provider Social History Tobacco Use Types [...]
[2025-01-16 10:15] LABS: Alanine Aminotransferase 17 U/L (0-31); Albumin Level 4.3 g/dL (3.5-5.0); Alkaline Phosphatase 62 U/L (39-117); Anion Gap 11 (12-20); Aspartate Amino Transferase 26 U/L (5-31); Bilirubin Total 0.2 mg/dL (0.0-1.0); Blood Urea Nitrogen 13 mg/dL (9-16); Calcium 8.7 mg/dL (8.4-10.2); Carbon Dioxide 23 mmol/L (22-29); Chloride 110 mmol/L (96-108); Cholesterol 155 mg/dL (<200); Estimated Average Glucose 108 mg/dL; Estimated Glomerular Filt Rate > 60; Glucose Random 100 mg/dL (60-115); HDL Cholesterol 48 mg/dL (>40); Hemoglobin A1c % 5.4 % (<6.0); Iron 26 mcg/dL (30-160); LDL Cholesterol Calculated 91 mg/dL (<100); Percent Iron Saturation 6 % (15-50); Potassium 4.1 mmol/L (3.3-5.1); Sodium 140 mmol/L (135-145); Total Iron Binding Capacity 404 mcg/dL (228-428); Total Protein 7.1 g/dL (6.5-8.0); Triglycerides 84 mg/dL (<150); Unsaturated Iron Binding 378 ug/dL
[2025-01-16 10:36] LABS: Ferritin 4 ng/mL (10-250); TSH reflex Free T4 0.89 uIU/mL (0.32-4.0); Vitamin D 25-OH Total 38.6 ng/mL (>30)
[2025-01-16 10:44] LABS: Folate 7.2 ng/mL (> or = 4.0); Vitamin B12 > 2000 pg/mL (200-900)
[2025-01-16 11:40] LABS: Creatinine Urine 155.94 mg/dL; Microalbum/Creatinine Ratio Ur 7.6 ug/mg cr (<30)
[2025-01-20 03:11] LABS: Zinc 89 mcg/dL (60-130)
[2025-01-20 22:09] LABS: Iodine, Serum/Plasma 62 mcg/L (52-109)
[2025-01-21 00:33] LABS: Copper, serum 135 mcg/dL (70-175)
== END 2025-01-16 09:18 | disposition home or self-care (01) ==
LOC: HO.LAB 09:17
PROVIDERS: Visit Provider Nurse Practitioner Family
DX: R42 Dizziness and giddiness (principal); E66.01 Morbid (severe) obesity due to excess calories; Z90.3 Acquired absence of stomach [part of]; D50.9 Iron deficiency anemia, unspecified
CPT/HCPCS: 36415; 80053; 80061; 82043; 82306; 82525; 82570; 82607; 82728; 82746; 83036; 83540; 83789; 84443; 84630; 85027

== ENCOUNTER 2025-01-29 15:39 | Outpatient (REF) | payer OTHER, SELFPAY ==
--- OUTSIDE RECORDS SUMMARY | 2025-01-29 15:43 | XMS_ITS | Encounter Summary ---
Author Organization [facility] and [facility] Address [address] [place] [address] Care Team Providers Care Resident Assistant Name Role Phone Unavailable Primary Care Provider Unavailabl e Encounter Details Date Type Department Care Team (Late st Contact Info) Description 06/01/2015 Scanned Document [facility] at [address] [place] [address] [phone] External, Provider Social History Tobacco Use Types [...]
== END 2025-01-29 15:40 | disposition home or self-care (01) ==
LOC: HO.MAMMO 15:39
PROVIDERS: PCP Nurse Practitioner Family; Visit Provider Nurse Practitioner Family
DX: Z12.31 Encounter for screening mammogram for malignant neoplasm of breast (principal)
CPT/HCPCS: 77063; 77067

== ENCOUNTER → 2025-01-29 15:45 | Outpatient (BNV) | payer OTHER, SELFPAY | PROVIDERS: PCP Nurse Practitioner Family; Visit Provider Radiology Body Imaging | DX: Z12.31 Encounter for screening mammogram for malignant neoplasm of breast (principal) | CPT/HCPCS: 77063; 77067 ==

== ENCOUNTER 2025-02-12 10:23 | Outpatient (AMB) | payer OTHER, SELFPAY ==
--- NOTE | 2025-02-12 10:24 | MHC.PC.OV ---
Vital Signs 02/12/25 10:29 Height 4 ft 10 in Weight 202 lb BMI 42.2 BP 138/78 Blood Pressure Location Rt brachial Position Sitting Respiration 13 Pulse 86 Pulse Source Pulse Oximeter Temp 97.1 F Temp Source Oral Pulse Oximetry (%) 98 Oxygen Delivery Method Room Air Intake Visit Reasons: 4-6 weeks fu labs 30 min Intake Note: Follow up to review labs. Patient c/o still being light headed. Patient has a GI appt in Mar 26, 2025. Sports Development Officer Required: No Allergies Penicillins Allergy (Severe, Verified 02/12/25 10:55) Rash Sulfa (Sulfonamide Antibiotics) Allergy (Severe, Verified 02/12/25 10:55) Rash Medication List - Last Reconciled 02/12/25 by KILO Andres- ferrous sulfate 325 mg PO DAILY Tobacco use date assessed: 02/12/25 Dental Screening Dental Screen Date: 02/12/25 Did you have a dental visit in the last 12 months?: Yes Did you have a dental problem in the last 6 months where you did not have access to dental care?: No Was dental information given to patient?: Patient has dentist HPI HPI Comments History of Present Illness Details 44 y/o F with anemia, obesity, current smoker (1 PPD, 30 pack year hx), family hx of breast ca s/p partial gastrectomy (2009), c section x 2 (2004, 2012) Social: [employer] at [employer], lives w/ and children Fhx: 3 paternal aunts w/ breast ca, fhx HT and [place] Health Maintenance: Tdap 2019 Mammo 01/2025 wnl Colon referral in appt 04/22/25 Pap - overdue, has IUD in place, copper, placed 2012, due to come out, referral in place and pending. She has not heard about appt yet; i sent a message to [facility]HYDROGENATION CONVERTER OPERATOR to expedite this for her. Has heavy periods w/ IUD in place contributing to her anemia. Specialists Optho wears glasses, last exam 08/2024, annual exams DEHYDROGENATION CONVERTER OPERATOR History of Present Illness - The patient is a 44-year-old female presenting with follow-up for lab results & for CPE - Labs reviewed w/ her in detail today - Persistent iron deficiency anemia and previous low blood counts despite supplementation. Ferous sulfate added to daily regimen - Reports of dizziness, mostly with positional changes. - Fatigue intermittently affects daily activities but this has improved w/ Iron; not eating ice like before. - Hx of SULY on CPAP prior to surgery; wonders about repeating sleep study. - Concurrently elevated B12 levels, likely from recent supplementation. Advised to reduce b12 supplements;Stop Zinc. Other supplements ok. - Notably heavy menstrual periods with IUD may contribute to anemia. Past Surgical History - Gastrectomy in 2009 - C-sections in 2004 and 2012 Family History - Three paternal aunts with breast cancer - Family history of hypertension and heart attacks Social History - Occupation: [employer] at a [employer] - Reports feeling safe at home - Smoking status cont will be eligible for lung ca screen age 49 Health Maintenance - Normal results reported from recent mammogram - Upcoming colonoscopy scheduled for April 22 - Gynecology appointment pending expedited review due to heavy periods and IUD-related concerns - Planned repeat of anemia-related labs in 90 days - Discussion of potential non-surgical weight management options, including Weight Watchers Review of Systems - Constitutional: Reports fatigue and energy fluctuations - Skin: Changes in pigmentation noted - Neurological: Reports dizziness, particularly with positional changes - Hematological: Complaints of anemia-related symptoms - Gastrointestinal: Reduced frequency of bowel movements, approximately once or twice per week, consistent with patient's norm - Genitourinary: Heavy menstrual periods with IUD, contributing to anemia Physical Exam General: Well developed, well nourished, in no acute distress. Appears stated age. Head: Normocephalic, atraumatic. Eyes: Pupils are equal, round and reactive to light and accommodation. Conjunctivae are clear. Vision grossly normal. Ears: TMs clear AU, EACS WNL Nose: Patent, without discharge. Neck: Supple, no adenopathy or thyromegaly. . Breast: Edu on SBE. Mammogram was normal. Lungs: Clear to auscultation bilaterally. No rales, rhonchi or wheeze noted. Good air flow in all watson. Heart: Regular rate and rhythm. No murmurs, click, rubs or gallops are noted. Abdomen: Bowel sounds present in all quadrants. The abdomen is soft, nontender, with no masses or organomegaly noted. No hernias are noted. Patient reports pooping once or twice a week, which is normal for her. : Deferred. Reviewed JENS & recommendations for routine DEHYDROGENATION CONVERTER OPERATOR. Heavy periods with IUD in place contributing to anemia. Pulses: Peripheral pulses are equal and palpable bilaterally. Extremities: No clubbing, cyanosis nor edema is noted. Bruising noted on legs and arms, likely due to anemia. Neurologic: Gait and station normal. Cranial Nerves 2-12 intact. Motor strength grossly symmetrical and intact. No sensory loss. Balance normal. Skin: No rashes, ulcers, or lesions noted. Turgor is good. Skin color is good. Hair and nails are without abnormalities. Psych: Normal eye contact, affect and mood appropriate, and normal interactions. Patient is alert and appropriate to context. Results - see below Discussion Notes During the visit, I reviewed the recent laboratory findings with the patient, confirming that zinc, copper, and iodine were within normal limits, but there was persistent iron deficiency anemia. I explained that elevated B12 levels is d/t intake of B12 supplements. We discussed the ongoing anemia management strategies, particularly concerning her heavy menstrual bleeding with an IUD. I recommended discontinuation of zinc supplements to improve iron absorption. I advised that anemia-related symptoms like dizziness and energy fluctuations might persist until blood counts normalize, and I emphasized monitoring lab results in 90 days. I suggested using Weight Watchers as a non-surgical option for weight management. We also reviewed her upcoming screening appointments and discussed the possibility of sleep apnea given her past symptoms. Assessment and Plan 1. Anemia - Cease zinc supplements. - Continue current iron regimen. - Repeat labs in 90 days. - IUD mgmt w/ DEHYDROGENATION CONVERTER OPERATOR - message sent 2. Elevated B12 Levels - Discontinue B12 supplement. 3. Dizziness - Attributed to anemia. - Monitor improvement with iron supplementation. 4. Iron Deficiency - Address heavy periods with gynecology. 5. HX of Sleep Apnea - Consider repeat sleep study. RTO 3 MONTHS FOR REPEAT LABS AND FU ON SLEEP STUDY RESULTS, LABS 1 WEEK BEFORE, SOONER NEEDED Patient Instructions - Continue taking your prescribed iron supplements and stop taking zinc and B12 supplements for now. - Have your labs checked in 90 days from now. - Follow-up with the production control coordinator about your heavy periods as this could be affecting your anemia. - Look into Weight Watchers if interested in weight management. - Contact me through the portal if you have changes in your health or require care sooner. Consent Patient was informed and verbally consented to the use of an ambient scribe for clinic note documentation during this visit. AN ADDITIONAL 10 MINUTES WAS SPENT ADDRESSING THE PROBLEM(S) NOTED AT TODAYS VISIT. THIS INCLUDES TIME SPENT BEFORE THE VISIT REVIEWING THE CHART, TIME SPENT DURING THE VISIT, AND TIME SPENT AFTER THE VISIT ON DOCUMENTATION REVIEWING LABORATORY RESULTS, DIAGNOSTIC IMAGING, MEDICATIONS, PERFORMING A MEDICALLY NECESSARY EVALUATION, COUNSELING ON DIAGNOSES, CARE COORDINATION, ORDERING APPROPRIATE TESTS, ORDERING APPROPRIATE MEDICATIONS, REVIEW OF TESTS PERFORMED BY OTHER PROVIDERS, REPORTING TEST RESULTS WITH THE PATIENT, COMMUNICATION WITH OTHER HEALTHCARE PROVIDERS. [facility] Medical History (Updated 02/12/25 @ 11:16 by KILO Andres-SANTIAGO) ADHD Asthma Thyroid disorder Surgical History (Updated 01/09/25 @ 11:28 by JERMAINE Andres) Gastric bypass status for obesity (~2009) Previous section Family History (Updated 01/09/25 @ 11:22 by Ne Mccann MA) Father Cancer Social History (Updated 01/09/25 @ 11:04 by Ne Mccann MA) Housing: House Alcohol intake: never Patient Tobacco Use Status: Current everyday Tobacco user Cigarette Packs Per Day: 1 Cigarettes Per Day: 20 Years Smoked: 32 e-Cigarette/Vaping Use: Never Used Second Hand Smoke Exposure: No Current occupational status: employed 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 Cognitive needs: No Hearing needs: No Vision needs: Yes (wear glasses) Questionnaire Thrive Questionnaire Date Thrive assessed: 01/09/25 I am a: Patient What is your living situation today?: I have a steady place to live Within the past 12 months, did the food you bought not last and you didn't have the money to get more?: Never true Within the past 12 months, did you worry whether your food would run out before you got money to buy more?: Never true Do you have trouble paying for medicines?: No Do you have trouble getting transportation to medical appointments?: No Do you have trouble paying your heating and electricity bill?: No Do you have trouble taking care of your child, family member or friend?: No Do you have trouble with day-to-day activities such as bathing, preparing meals, shopping, managing finances, etc.?: No Are you currently unemployed and looking for a job?: No Are you interested in more education?: Yes Please select the resources that you would like help with: None Currently or been in a relationship where the following occur: No concerns reported THRIVE Score: 0 VAHID-7 AMB Questionnaire VAHID-7 Date VAHID - 7 assessed: 01/09/25 Source: Developed by Drs. Darek Jones, Vaishnavi Fernández, Kishoer Sanford and colleagues, with an educational jose d from [email or web address]. Physical exam (Primary Care) Vital Signs: Last Vital Signs Temp 97.1 F 02/12/25 10:29 Pulse 86 02/12/25 10:29 Resp 13 02/12/25 10:29 BP 138/78 02/12/25 10:29 Pulse Ox 98 02/12/25 10:29 Oxygen Delivery Method Room Air 02/12/25 10:29 BMI result Body Mass Index 42.2 Tobacco/Smoking Status: Tobacco use Status Tobacco use date assessed 02/12/25 02/12/25 10:28 Patient Tobacco Use Status Current everyday Tobacco 02/12/25 10:24 e-Cigarette/Vaping Use Never Used 02/12/25 10:24 Thrive Assessment: Date of Thrive Assessment Date Thrive assessed 01/09/25 02/12/25 10:24 Currently or been in a relationship where the following occur: No concerns reported Results Reviewed Results Reviewed: ADDENDUMHi, You have profound anemia, or low blood count. You mentioned a supplement for this... but i cannot recall what it is. Can you provide me this info? Also your b12 levels are high, likely as a result of some of the supplements. I recommend reducing that some. Thyroid looks good Iodine, Zinc and Copper are pending. Laboratory Result Units Range Interpretation Provider Comments White Blood Count 8.1 X10*3/uL (4.8-10.8) Red Blood Count 5.21 X10*6/uL (4.20-5.50) Hemoglobin 9.4 g/dl (12.0-16.0) Low Hematocrit 33.2 % (37.0-47.0) Low Mean Corpuscular Volume 63.7 fL (80.0-98.0) Low Mean Corpuscular Hemoglobin 18.0 pg (27.0-33.0) Low Mean Corpuscular Hemoglobin Concent 28.3 g/dl (31.0-35.0) Low Red Cell Distribution Width 21.3 % (11.0-16.0) High Platelet Count 307 X10*3/uL (160-400) Mean Platelet Volume 10.4 fL (9.4-12.3) Nucleated RBC Absolute Count (auto) 0.000 X10*3/uL (0.0-0.012) Nucleated Red Blood Cells % (auto) 0.0 /100WBC (0.0-0.2) Blood Smear Pathologist Review Pending Sodium Level 140 mmol/L (135-145) Potassium Level 4.1 mmol/L (3.3-5.1) Chloride Level 110 mmol/L (96-108) High Carbon Dioxide Level 23 mmol/L (22-29) Anion Gap 11 (12-20) Low Blood Urea Nitrogen 13 mg/dL (9-16) Creatinine 0.55 mg/dL (0.5-1.4) Estimated Creatinine Clearance Calc Not Reportable Estimat Glomerular Filtration Rate > 60 Random Glucose 100 mg/dL (60-115) Estimated Average Glucose 108 mg/dL Hemoglobin A1c Percent 5.4 % (<6.0) Calcium Level 8.7 mg/dL (8.4-10.2) Iron Level 26 mcg/dL (30-160) Low Total Iron Binding Capacity 404 mcg/dL (228-428) Percent Iron Saturation 6 % (15-50) Low Unsaturated Iron Binding 378 ug/dL Ferritin 4 ng/mL (10-250) Low Total Bilirubin 0.2 mg/dL (0.0-1.0) Aspartate Amino Transf (AST/SGOT) 26 U/L (5-31) Alanine Aminotransferase (ALT/SGPT) 17 U/L (0-31) Alkaline Phosphatase 62 U/L (39-117) Total Protein 7.1 g/dL (6.5-8.0) Albumin 4.3 g/dL (3.5-5.0) Triglycerides Level 84 mg/dL (<150) Cholesterol Level 155 mg/dL (<200) LDL Cholesterol, Calculated 91 mg/dL (<100) HDL Cholesterol 48 mg/dL (>40) Vitamin B12 Level > 2000 pg/mL (200-900) High 25-Hydroxy Vitamin D Total 38.6 ng/mL (>30) Folate 7.2 ng/mL (> or = 4.0) Thyroid Stimulating Hormone (TSH) 0.89 uIU/mL (0.32-4.0) Urine Creatinine 155.94 mg/dL Urine Microalbumin 12.0 mg/L Urine Microalbumin/Creatinine Ratio 7.6 ug/mg cr (<30) Coding Level of Care Code Est Pt Level 2 (90029) Est Pt Prev Care 40-64y(24804) Diagnoses Encounter for general adult medical examination without abnormal findings Z00.00 S/P partial gastrectomy Z90.3 Iron deficiency anemia, unspecified iron deficiency anemia type D50.9 Iron deficiency anemia type: unspecified iron deficiency Obesity, morbid, BMI 40.0-49.9 E66.01 IUD (intrauterine device) in place Z97.5 Family history of breast cancer Z80.3 Mild intermittent asthma without complication J45.20 Asthma complication type: uncomplicated Dizziness R42 Current smoker F17.200 Daytime somnolence R40.0 History of sleep apnea Z86.69 Assessment & Plan Assessment & Plan (1) Encounter for general adult medical examination without abnormal findings: Onset Date: ~02/12/25 Code(s): Z00.00 - Encounter for general adult medical examination without abnormal findings Category: Medical (2) S/P partial gastrectomy: Code(s): Z90.3 - Acquired absence of stomach [part of] Category: Surgical (3) Iron deficiency anemia: Code(s): D50.9 - Iron deficiency anemia, unspecified Category: Medical Qualifiers: Iron deficiency anemia type: unspecified iron deficiency Qualified Code(s): D50.9 - Iron deficiency anemia, unspecified (4) Obesity, morbid, BMI 40.0-49.9: Code(s): E66.01 - Morbid (severe) obesity due to excess calories Category: Medical (5) IUD (intrauterine device) in place: Code(s): Z97.5 - Presence of (intrauterine) contraceptive device Category: Medical (6) Family history of breast cancer: Comment: 3 paternal aunts Code(s): Z80.3 - Family history of malignant neoplasm of breast Category: Medical (7) Mild intermittent asthma: Code(s): J45.20 - Mild intermittent asthma, uncomplicated Category: Medical Qualifiers: Asthma complication type: uncomplicated Qualified Code(s): J45.20 - Mild intermittent asthma, uncomplicated (8) Dizziness: Code(s): R42 - Dizziness and giddiness Category: Medical (9) Current smoker: Code(s): F17.200 - Nicotine dependence, unspecified, uncomplicated Category: Social Hx (10) Daytime somnolence: Code(s): R40.0 - Somnolence Category: Medical (11) History of sleep apnea: Code(s): Z86.69 - Personal history of other diseases of the nervous system and sense organs Category: Medical Plan .AC Orders: Orders Vitamin B12 and Folate 3 Months D50.9 - Iron deficiency anemia, unspecified, Z90.3 - Acquired absence of stomach [part of] Complete Blood Count no Diff 3 Months D50.9 - Iron deficiency anemia, unspecified, Z90.3 - Acquired absence of stomach [part of] Ferritin 3 Months D50.9 - Iron deficiency anemia, unspecified, Z90.3 - Acquired absence of stomach [part of] IRON PROFILE 3 Months D50.9 - Iron deficiency anemia, unspecified, Z90.3 - Acquired absence of stomach [part of] TSH reflex Free T4 3 Months D50.9 - Iron deficiency anemia, unspecified, Z90.3 - Acquired absence of stomach [part of] Vitamin D 25-OH Total 3 Months D50.9 - Iron deficiency anemia, unspecified, Z90.3 - Acquired absence of stomach [part of] RT home sleep study Today R06.83 - Snoring, R40.0 - Somnolence, Z86.69 - Personal history of other diseases of the nervous system and sense organs Patient Instructions: Health screenings for women You should visit your health care provider from time to time, even if you are healthy. The purpose of these visits is to: Screen for medical issues Assess your risk for future medical problems Encourage a healthy lifestyle Update vaccinations and other preventive care services Help you get to know your provider in case of an illness Information Even if you feel fine, you should still see your provider for regular checkups. These visits can help you avoid problems in the future. For example, the only way to find out if you have high blood pressure is to have it checked regularly. High blood sugar and high cholesterol levels also may not have any symptoms in the early stages. A simple blood test can check for these conditions. There are specific times when you should see your provider or receive specific health screenings. The [place] Preventive Services Task Force publishes a list of recommended screenings. Below are screening guidelines for women ages 18 to 39. BLOOD PRESSURE SCREENING Your blood pressure should be checked at least once every 3 to 5 years if: Your blood pressure is in the normal range (top number less than 120 mm Hg and bottom number less than 80 mm Hg) You don't have risk factors for high blood pressure Ask your provider if you need your blood pressure checked more often if: The top number is 120 to 129 mm Hg or the bottom number is 70 to 79 mm Hg You have diabetes, heart disease, kidney problems, are overweight, or have certain other health conditions You have a first-degree relative with high blood pressure You are Black You had high blood pressure during a If the top number is 130 mm Hg or greater or the bottom number is 80 mm Hg or greater, this is considered stage 1 hypertension. Schedule an appointment with your provider to learn how you can reduce your blood pressure. Watch for blood pressure screenings in your area. Ask your provider if you can stop in to have your blood pressure checked. BREAST CANCER SCREENING Experts do not agree about the benefits of breast self-exams in finding breast cancer or saving lives. Talk to your provider about what is best for you. A screening mammogram is not recommended for most women under age 40. Your provider may discuss and recommend mammograms, MRI scans, or ultrasounds if you have an increased risk for breast cancer, such as: A mother or sister who had breast cancer at a young age (most often starting screening earlier than the age the close relative was diagnosed) You carry a high-risk genetic marker CERVICAL CANCER SCREENING Cervical cancer screening should start at age 21 years unless your provider advises otherwise. After the first test: Women ages 21 through 29 should have a Pap test every 3 years. Exoprts do not agree on whether HPV testing is recommended for this age group. Women ages 30 through 65 should be screened with either a Pap test every 3 years or the HPV test every 5 years or both tests every 5 years (called cotesting ). Women who have been treated for precancer (cervical dysplasia) should continue to have Pap tests for 20 years after treatment or until age 65, whichever is longer. If you have had your uterus and cervix removed (total hysterectomy), and you have not been diagnosed with cervical cancer or precancer (high grade cervical neoplasia), you do not need cervical cancer screening. CHOLESTEROL SCREENING Cholesterol screening should begin at: Age 45 for women with no known risk factors for coronary heart disease Age 20 for women with known risk factors for coronary heart disease Repeat cholesterol screening should take place: Every 5 years for women with normal cholesterol levels More often if changes occur in lifestyle (including weight gain and diet) More often if you have diabetes, heart disease, kidney problems, or certain other conditions DIABETES SCREENING You should be screened for diabetes starting at age 35 and then repeated every 3 years if you have no risk factors for diabetes. Screening may need to start earlier and be repeated more often if you have other risk factors for diabetes, such as: You have a first degree relative with diabetes. You are overweight or have obesity. You have high blood pressure, prediabetes, or a history of heart disease. Screening for diabetes should be done if you are planning to become and you are overweight and have other risk factors such as high blood pressure. DENTAL EXAM Go to the dentist once or twice every year for an exam and cleaning. Your dentist will evaluate if you need more frequent visits. EYE EXAM Have an eye exam every 5 to 10 years before age 40. If you have vision problems, have an eye exam every 2 years or more often if recommended by your provider. You should have an eye exam that includes an examination of your retina (back of your eye) at least every year if you have diabetes. IMMUNIZATIONS Commonly needed vaccines include: Flu shot: get one every year. COVID-19 vaccine: ask your provider what is best for you. Tetanus-diphtheria and acellular pertussis (Tdap) vaccine: have one at or after age 19 as one of your tetanus-diphtheria vaccines if you did not receive it as an adolescent. Tetanus-diphtheria: have a booster (or Tdap) every 10 years. Varicella vaccine: receive 2 doses if you never had chickenpox or the varicella vaccine. Hepatitis B vaccine: receive 2, 3, or 4 doses, depending on your exact circumstances. Measles, mumps, and rubella (MMR) vaccine: receive 1 to 2 doses if you are not already immune to MMR. Your provider can tell you if you are immune. Ask your provider about the human papillomavirus (HPV) vaccine if: You have not received the HPV vaccine in the past You have not completed the full vaccine series (you should catch up on this shot) Ask your provider if you should receive other immunizations if you have certain health problems that increase your risk for some diseases such as pneumonia. INFECTIOUS DISEASE SCREENING Women who are sexually active should be screened for chlamydia and gonorrhea up until age 25. Women 25 years and older should be screened for chlamydia and gonorrhea if at high risk. Screening for hepatitis C: All adults ages 18 to 79 should get a one-time test for hepatitis C. people should be screened at every . Screening for human immunodeficiency virus (HIV): All people ages 15 to 65 should get a one-time test for HIV. Depending on your lifestyle and medical history, you may also need to be screened for infections such as syphilis and HIV, as well as other infections. PHYSICAL EXAM All adults should visit their provider from time to time, even if they are healthy. The purpose of these visits is to: Screen for disease Assess your risk of future medical problems Encourage a healthy lifestyle Update your vaccinations and other preventive care services Maintain a relationship with a provider in case of an illness Your height, weight, and BMI should be checked at every exam. During your exam, your provider may ask you about: Depression and anxiety Diet and exercise Alcohol and tobacco use Safety issues, such as using seat belts, smoke detectors, and intimate partner violence Your medicines and risk for interactions SKIN SELF-EXAM Your provider may check your skin for signs of skin cancer, especially if you're at high risk, such as if you: Have had skin cancer before Have close relatives with skin cancer Have a weakened immune system OTHER SCREENING Talk with your provider about colon cancer screening if you have a strong family history of colon cancer or polyps, or if you have had inflammatory bowel disease or polyps yourself. Routine bone density screening of women under 40 is not recommended.
[2025-02-12 10:29] VITALS: BP 138/78; PULSE 86; RESP 13; TEMP 36.2; O2SAT 98; BMI 42.2
--- OUTSIDE RECORDS SUMMARY | 2025-02-12 11:29 | XMS_ITS | Encounter Summary ---
Author Organization [facility] and [facility] Address [address] [place] [address] Care Team Providers Care Wireless Development Manager Name Role Phone Unavailable Primary Care Provider Unavailabl e Encounter Details Date Type Department Care Team (Late st Contact Info) Description 06/01/2015 Scanned Document [facility] at [address] [place] [address] [id number] External, Provider Social History Tobacco Use Types [...]
== END 2025-02-12 11:19 | disposition home or self-care (01) ==
LOC: HO.HMCFM 10:23
PROVIDERS: PCP Nurse Practitioner Family; Visit Provider Nurse Practitioner Family
DX: Z00.00 Encounter for general adult medical examination without abnormal findings (principal); D50.9 Iron deficiency anemia, unspecified; E66.01 Morbid (severe) obesity due to excess calories; Z68.41 Body mass index [BMI] 40.0-44.9, adult; Z90.3 Acquired absence of stomach [part of]; Z97.5 Presence of (intrauterine) contraceptive device; Z80.3 Family history of malignant neoplasm of breast; J45.20 Mild intermittent asthma, uncomplicated; R42 Dizziness and giddiness; F17.200 Nicotine dependence, unspecified, uncomplicated; R40.0 Somnolence; Z86.69 Personal history of other diseases of the nervous system and sense organs

== ENCOUNTER 2025-04-22 11:51 | Outpatient (AMB) | payer OTHER, SELFPAY ==
[2025-04-22 11:59] VITALS: BP 173/90; PULSE 76; BMI 43.2
--- NOTE | 2025-04-22 11:59 | A.OFFVIS_ITS ---
Vital Signs 04/22/25 11:59 Height 4 ft 10 in Weight 206 lb 12.697 oz BMI 43.2 BP 173/90 H Blood Pressure Location Lt brachial Position Sitting Pulse 76 Intake Visit Reasons: [place] Screening Intake Note: New patient in office today for colonoscopy screening. CC: Patient states that she only has BMs once a week, but that day she is the whole day having BMs. 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 Has had one colonoscopy 10 years ago as a diagnostic evaluation for changes in bowel movements. Was recommended to follow up in 10 years. Patient reports that she has a long standing history of constipation. Patient however denies constipation but reports that she only has 1 bowel movement a week and when she does have a bowel movement she spends a majority of the day in the bathroom. Her stool on these days is a combination of hard stool and watery stool. Denies any blood or melena. She reports that she has tried stool softeners, milk of magnesia and citrucel as needed for support over the years to induce a bowel movement. She does not currently take anything daily for constipation. Patient has iron deficiency anemia and takes an iron supplement daily. She reports this is most likely due to heavy periods, she has an copper IUD in place and is awaiting OBGYN appointment for removal.? She is s/p partial gastrectomy in 2009. Reports her weight has fluctuated throughout the years. Patient reports that her diet is not the best and does not intake a lot of dietary fiber. She has tried citrucel supplements in the past.? Today denies dysphagia, dyspepsia, odynophagia, heartburn, early satiety, epigastric pain, lower abdominal pain, belching, bloating, melena, hematochezia, excessive flatus, ribbon like stools, nausea, vomiting, unintentional weight loss. No known family history of colon cancer. Has no known adverse reactions to anesthesia. Has a history of SULY but does not currently wear CPAP. Reports losing weight has helped with SULY, is undergoing a sleep study tomorrow. No blood thinning medications.? [facility] Medical History (Updated 02/12/25 @ 11:16 by Pam Townsend [facility]) ADHD Thyroid disorder Asthma Surgical History (Updated 04/22/25 @ 12:08 by Rubina Harry CCM) H/O colonoscopy Gastric bypass status for obesity (~2009) Previous section Family History (Updated 04/22/25 @ 12:09 by OLEG Lama) Father Cancer Paternal Aunt Breast cancer Social History (Updated 01/09/25 @ 11:04 by Ne Mccann MA) Housing: House Alcohol intake: never Patient Tobacco Use Status: Current everyday Tobacco user Cigarette Packs Per Day: 1 Cigarettes Per Day: 20 Years Smoked: 32 e-Cigarette/Vaping Use: Never Used Second Hand Smoke Exposure: No Current occupational status: employed 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 Cognitive needs: No Hearing needs: No Vision needs: Yes (wear glasses) Physical Exam Vital Signs: Last Vital Signs Pulse 76 04/22/25 11:59 BP 173/90 H 04/22/25 11:59 BMI result Body Mass Index 43.2 Assessment & Plan Assessment & Plan (1) Iron deficiency anemia: Code(s): D50.9 - Iron deficiency anemia, unspecified Category: Medical Qualifiers: Iron deficiency anemia type: unspecified iron deficiency Qualified Code(s): D50.9 - Iron deficiency anemia, unspecified (2) S/P partial gastrectomy: Code(s): Z90.3 - Acquired absence of stomach [part of] Category: Medical (3) Screen for colon cancer: Code(s): Z12.11 - Encounter for screening for malignant neoplasm of colon (4) Chronic idiopathic constipation: Code(s): K59.04 - Chronic idiopathic constipation Plan Patient denies any cardiac or respiratory symptoms.? Patient will start taking Dulcolax daily. Denies any issues with anesthesia in the past.? History of sleep apnea going for another sleep study tomorrow. Patient reports she last lot of weight in the past few years.? No history infectious diseases in the past or present.? Not on any anticoagulation therapy.? No family or personal history of colon cancer or polyps.? Patient denies melena, hematochezia, unintentional weight loss or ribbon like stools.? Discussed at length the pre-procedure,? prep, diet & medications as well as what to expect prior, during and after the procedure.?? Stressed the importance of good bowel prep.? Recommended the use of Vaseline or Calmoseptine OTC & baby wipes with bowel movements to promote comfort.? ?Patient verbalizes understanding and agrees to plan of care.? She was given the opportunity to ask questions and all questions answered.? We will see her after the procedure.? Orders: Referrals GI Procedure Notification Z12.11 - Encounter for screening for malignant neoplasm of colon Medications: New bisacodyl (Dulcolax (bisacodyl)) 10 mg (2 x 5 mg) PO BEDTIME 180 tabs 4RF polyethylene glycol 3350 (Miralax) As directed by gastroenterology department at [facility] 238 grams PO ONCE 238 grams 0RF Z12.11 - Encounter for screening for malignant neoplasm of colon Coding Level of Care Code New Pt Level 3 (16358) Diagnoses Iron deficiency anemia, unspecified iron deficiency anemia type D50.9 Iron deficiency anemia type: unspecified iron deficiency S/P partial gastrectomy Z90.3 Screen for colon cancer Z12.11 Chronic idiopathic constipation K59.04 Time Spent (min) 40 Comment 30 minutes spent with patient and additional 10 minutes spent reviewing her records
--- OUTSIDE RECORDS SUMMARY | 2025-04-22 13:13 | XMS_ITS | Clinical Summary ---
Author Organization [facility] Address [address] [place] [id number] Care Team Providers Care Telecommunications Project Manager Name Role Phone Unavailable Primary Care Provider Unavailabl e Allergies Active Allergy Reactions Criticality Noted Date Comments Penicillins 07/18/2011 Sulfa (Sulfonamide Antibiotics) 06/24 Medications No known medications Family History Medical History Relation Name Comments Heart disease Maternal Grandmother Relation Name Status Comments Maternal Grandmother Social History Tobacco Use Types Packs/Day Years Used Date Smoking Tobacco: Every Day Cigarettes 0.5 14 Alcohol Use Standard Drinks/Week Comments No 0 (1 standard drink = 0.6 oz pur e alcohol) Comments Unknown Sex and Gender Information Value Date Recorded Sex Assigned at Not on file Legal Sex Female 5:32 PM EST Gender Identity Not on file Sexual Orientation Not on file Plan of Treatment Health Maintenance Due Date Last Done Comments HIV screening 1992 Hepatitis C screening 1997 Tetanus adult (Td q 10,TDAP once) 1999 Cervical cancer screening 12/24/20172012, 04/16/2012 Breast cancer screening 2019 Lipid disorder screening 2019 Colon cancer screening, Colonoscopy 2024 Diabetes screening 2024 Influenza vaccine 02/21/2025 Covid-19 vaccine series (2023- season) 2025 RSV Immunization (1 - 1-dose 75+ series) 2054 Meningococcal B Vaccine Aged Out No l onger eligible based on patient's age to complete this topic Meningococcal Vaccine Aged Out No kevin amie eligible based on patient's age to complete this topic Pneumococcal Vaccine (2 - 49 years) Aged Out No longer eligible b ased on patient's age to complete this topic Procedures Procedure Name Priority Date/Time Associated Diagnosis Comments CYTOLOGY SERVICE WRITER ADVISOR CASES ([facility]) Routine 12/24/2012 11:52 AM EDT from Last 3 Months or Most Recently Relevant to Health Maintenance Results * Cytology rigging worker cases ([facility]) (12/24/2012 11:52 AM EDT) Final Report [facility] Department of Pathology [address] [place] [address] Cytology Report IMPORTED CASE FROM [employer] Patient Name: HERO SALGADO Date of : 1980 (Age: 32) Med. Rec. #: [id number] Gender: F Taken: 12/24/2012 Received: 12/24/2012 Reported:12/26/2012 Ordering Physician: Darek Beatty M.D. Specimen Received: Cervical/Endocervic al Final Cytologic Diagnosis Cervical/Endocervic al: Thin Prep Pap: Satisfactory for evaluation. Endocervical cells present. Negative for intraepithelial lesion or malignancy. Electronically Signed Out 12/26/2012 Anaid Brock,,CT(ASC P) The above electronic signature indicates that either the pathologist or the lithographic stripper has personally performed a microscopic examination and has based the diagnosis on the available microscopic material. Clinical History: Date of Last Menstrual Period: Unknown Gross Description: Received is a Thin Prep Pap test vial for processing. One Thin Prep slide is prepared and processed. The Pap smear is a screening test that aids in the detection of cervical cancer and cancer precursors. Both false positive and false negative results can occur. The test should be used at regular intervals, and positive results should be confirmed before definitive therapy. ICD Code(s): V24.2. [facility] Final Diagnosis Cervical/Endocervic al: Thin Prep Pap: Satisfactory for evaluation. Endocervical cells present. Negative for intraepithelial lesion or malignancy. [facility] Clinical History Date of Last Menstrual Period: Unknown [facility] Gross Description Received is a Thin Prep Pap test vial for processing. One Thin Prep slide is prepared and processed. [facility] Papanicolaou smear specimen (specimen) 12/24/2012 11:52 AM EDT 12/24/2012 11:52 AM EDT us Provider Not In System PATHOLOGY/CYTOLOGY ORDERA BLES Final Result [facility] from Last 3 Months or Most Recently Relevant to Health Maintenance
--- OUTSIDE RECORDS SUMMARY | 2025-04-22 13:13 | XMS_ITS | Encounter Summary ---
Author Organization [facility] and [facility] Address [address] [place] [address] Care Team Providers Care Screener Perfumer Name Role Phone Unavailable Primary Care Provider Unavailabl e Encounter Details Date Type Department Care Team (Late st Contact Info) Description 06/01/2015 Scanned Document [facility] at [address] [place] [address] [phone] External, Provider Social History Tobacco Use Types [...]
== END 2025-04-22 13:15 | disposition home or self-care (01) ==
LOC: HO.HGI 11:52
PROVIDERS: PCP Nurse Practitioner Family; Visit Provider Nurse Practitioner Family
DX: Z01.818 Encounter for other preprocedural examination (principal); Z12.11 Encounter for screening for malignant neoplasm of colon; K59.04 Chronic idiopathic constipation; D50.9 Iron deficiency anemia, unspecified; Z90.3 Acquired absence of stomach [part of]
CPT/HCPCS: 99203

== ENCOUNTER → 2025-04-23 10:49 | Outpatient (REF) | payer OTHER, SELFPAY ==
--- OUTSIDE RECORDS SUMMARY | 2025-04-23 12:26 | XMS_ITS | Clinical Summary ---
Author Organization [facility] Address [address] [place] [phone] Care Team Providers Care Mandolin Repairer Name Role Phone Unavailable Primary Care Provider [...] Name Priority Date/Time Associated Diagnosis Comments CYTOLOGY ASSOCIATE GENETICS PROFESSOR CASES ([facility]) Routine 12/24/2012 11:52 AM EDT from Last 3 Months or Most Recently Relevant to Health Maintenance Results * Cytology mining technician cases ([facility]) (12/24/2012 11:52 AM EDT) Final Report [facility] Department of Pathology [address] [place] [address] Cytology Report IMPORTED CASE FROM [facility] Patient Name: HERO SALGADO Date of : 1980 (Age: 32) Med. Rec. #: [id number] Gender: F Taken: 12/24/2012 Received: 12/24/2012 Reported:12/26/2012 Ordering Physician: Darek Beatty M.D. Specimen Received: Cervical/Endocervic al Final Cytologic Diagnosis Cervical/Endocervic al: Thin Prep Pap: Satisfactory for evaluation. Endocervical cells present. Negative for intraepithelial lesion or malignancy. Electronically Signed Out 12/26/2012 Anaid Brock,,CT(ASC P) The above electronic signature indicates that either the pathologist or the repulping supervisor has personally performed a microscopic examination and [...] confirmed before definitive therapy. ICD Code(s): V24.2. [facility] Final Diagnosis Cervical/Endocervic al: Thin Prep Pap: Satisfactory for evaluation. Endocervical cells present. Negative for intraepithelial lesion or malignancy. [facility] Clinical History Date of Last Menstrual Period: Unknown [facility] Gross Description Received is a Thin Prep Pap test vial for processing. One Thin Prep slide is prepared and processed. [facility] Papanicolaou smear specimen (specimen) 12/24/2012 11:52 AM EDT 12/24/2012 11:52 AM EDT us Provider Not In System PATHOLOGY/CYTOLOGY ORDERA BLES Final Result [facility] from Last 3 Months or Most Recently Relevant to Health Maintenance
--- OUTSIDE RECORDS SUMMARY | 2025-04-23 12:26 | XMS_ITS | Encounter Summary ---
Author Organization [facility] Address [address] [place] [address] Care Team Providers Care Health Education Assistant Name Role Phone Unavailable Primary Care Provider Unavailabl e Encounter Details Date Type Department Care Team (Late st Contact Info) Description 06/01/2015 Scanned Document [facility] at [address] [place] [address] [id number] External, Provider Social History Tobacco Use Types [...]
== END ==
LOC: HO.SL 10:49
PROVIDERS: PCP Nurse Practitioner Family; Visit Provider Nurse Practitioner Family
DX: G47.33 Obstructive sleep apnea (adult) (pediatric) (principal); R06.83 Snoring; R40.0 Somnolence; Z86.69 Personal history of other diseases of the nervous system and sense organs
CPT/HCPCS: 95806

== ENCOUNTER → 2025-04-23 11:03 | Outpatient (BNV) | payer OTHER, SELFPAY | PROVIDERS: PCP Nurse Practitioner Family; Visit Provider Internal Medicine | DX: G47.33 Obstructive sleep apnea (adult) (pediatric) (principal) | CPT/HCPCS: 95806 ==

== ENCOUNTER 2025-06-04 15:32 | Outpatient (AMB) | payer OTHER, SELFPAY ==
--- NOTE | 2025-06-04 07:50 | MHC.PC.OV ---
Intake Visit Reasons: review sleep study results Consulting Marine Engineer Required: No Allergies Penicillins Allergy (Severe, Verified 06/04/25 15:45) Rash Sulfa (Sulfonamide Antibiotics) Allergy (Severe, Verified 06/04/25 15:45) Rash Medication List - Last Reconciled 06/04/25 by KILO Andres-BC [Berberine w/ [place] cinnamon PO] biotin 10,000 mcg PO DAILY bisacodyl (Dulcolax (bisacodyl)) 10 mg (2 x 5 mg) PO BEDTIME ferrous sulfate 325 mg PO DAILY Tajik ginseng root extract mg PO magnesium glycinate mg PO melatonin 5 mg PO BEDTIME [neuroptene perfect pressure PO] omega 4-hmq-hec-fish oil 60-90-500 mg (Fish Oil) 1 cap PO DAILY polyethylene glycol 3350 (Miralax) 238 grams PO ONCE [thyroid support PO] Tobacco use date assessed: 06/04/25 Dental Screening Dental Screen Date: 06/04/25 Did you have a dental visit in the last 12 months?: Yes Did you have a dental problem in the last 6 months where you did not have access to dental care?: No Was dental information given to patient?: Patient has dentist HPI HPI Comments History of Present Illness Details 44 y/o F with anemia, obesity, current smoker (1 PPD, 30 pack year hx), family hx of breast ca, SULY, HTN s/p partial gastrectomy (2009), c section x 2 (2004, 2012) 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 She has not heard about appt yet; i sent a message to [facility] to expedite this for her. Has heavy periods w/ IUD in place contributing to her anemia. 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 Obstructive Sleep Apnea: - A recent sleep study confirmed a diagnosis of mild obstructive sleep apnea, with an AHI of 6 events per hour. - The study also showed moderately excessive snoring for 38% of the time and oxygen desaturation to 82%, which lasted for approximately five minutes of total sleep time. - The patient reports that her condition seems to be worsening, as she has been waking up with headaches and elevated blood pressure. - She has a colonoscopy scheduled for the . Hypertension: - The patient reports waking with high blood pressure, which causes her to feel super dizzy. - A recent blood pressure reading during a GI visit was noted to be 139/90 mmHg. - She reports using aspirin to try and lower her blood pressure. Headache: - The patient reports waking up with headaches, which she associates with her poor sleep. Insomnia: - The patient reports sleeping only four to five hours per night. Review of Systems - Neurological: Reports waking with headaches and sleeping only 4-5 hours per night. - Cardiovascular: Reports waking with high blood pressure associated with dizziness. - Respiratory: Reports snoring. Physical Exam - No physical exam was performed during this telehealth visit. She was not able to connect via video despite attempts Results - At-home sleep study: - Impression: Mild obstructive sleep apnea. - Apnea-Hypopnea Index (AHI): 6 events per hour. - Snoring: Moderately excessive, 38% of total sleep time. - Oxygen saturation: Fazal of 82%, lasting for about 5 minutes of total sleep time. Assessment and Plan 1. Mild Obstructive Sleep Apnea (G47.33) - The patient's sleep study confirms mild SULY with an AHI of 6, but it is clinically significant due to associated oxygen desaturation to 82% and symptoms of waking with headaches and high blood pressure. - Given her symptomatic presentation, treatment with CPAP is indicated over conservative measures alone. The plan is to initiate CPAP therapy. The patient will contact her insurance, [email or web address], to identify their contracted durable medical equipment (DME) supplier from a provided list ([facility], [place], [facility], [employer]). - Once the supplier is identified, an order will be placed. The patient was educated on the importance of compliance, as it will be remotely monitored. She was also advised to inform her anesthesiology team of her SULY diagnosis before her upcoming colonoscopy on the . 2. Hypertension (I10) - The patient reports waking with elevated blood pressure and associated dizziness, which is concerning. - A recent reading was elevated at 173/90 mmHg. - The hypertension is likely multifactorial but strongly associated with her untreated SULY. A prescription for clonidine 0.1 mg to be taken at bedtime has been sent to the [facility] on [address]. This medication may also help with sleep. - The patient is advised to monitor her blood pressure at home. 3. Headache (R51.9) and Insomnia (G47.00) - The patient reports morning headaches and sleeping only 4-5 hours a night. - These symptoms are attributed to her untreated sleep apnea. The initiation of CPAP therapy and clonidine is expected to improve these symptoms. 4. Follow-up and Health Maintenance - The patient will proceed with her scheduled follow-up on June 24 and is reminded to complete blood work beforehand. - A separate telephonic appointment will be scheduled in 60-90 days to assess CPAP compliance and response to therapy. Patient was given time to ask questions. All questions were answered to their satisfaction. Telehealth Attestation This visit was conducted via a synchronous audio-only telehealth encounter. The patient has been explained that this is an interactive (audio/video) telehealth encounter and what that consists of. The patient understands and wishes to proceed. [employer] platform was used. Total time spent caring for the patient today was 21 minutes. This includes time spent before the visit reviewing the chart, time spent during the visit, and time spent after the visit on documentation, reviewing laboratory results, diagnostic imaging, medications, performing a medically necessary evaluation, counseling on diagnoses, care coordination, ordering appropriate tests, ordering appropriate medications, review of tests performed by other providers, reporting test results with the patient, communication with other healthcare providers. [facility] Medical History (Updated 06/04/25 @ 16:46 by [facility] ADHD Asthma Thyroid disorder Surgical History (Updated 04/22/25 @ 12:08 by OLEG Lama) Gastric bypass status for obesity (~2009) H/O colonoscopy Previous section Family History (Updated 04/22/25 @ 12:09 by OLEG Lama) Father Cancer Paternal Aunt Breast cancer Social History (Updated 01/09/25 @ 11:04 by Ne Mccann MA) Housing: House Alcohol intake: never Patient Tobacco Use Status: Current everyday Tobacco user Cigarette Packs Per Day: 1 Cigarettes Per Day: 20 Years Smoked: 32 e-Cigarette/Vaping Use: Never Used Second Hand Smoke Exposure: No Current occupational status: employed 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 Darek Jones, Vaishnavi Fernández, Kishore Sanford and colleagues, with an educational jose d from [employer]. Physical exam (Primary Care) Tobacco/Smoking Status: Tobacco use Status Tobacco use date assessed 06/04/25 06/04/25 15:46 Patient Tobacco Use Status Current everyday Tobacco 06/04/25 07:51 e-Cigarette/Vaping Use Never Used 06/04/25 07:51 Thrive Assessment: Date of Thrive Assessment Date Thrive assessed 01/09/25 06/04/25 07:51 Telehealth Telehealth Telehealth Platform: Telephone Location of provider rendering services: practice address Location of patient: address on file Patient Identification confirmed using: Name, : Yes Telehealth method: voice only Patient verbally consented to treatment: Yes Patient verbally consented to billing insurance company: Yes Patient informed of any privacy concerns related to visit: Yes Minutes spent on Phone/Video with Pt.: 8 Results Reviewed Results Reviewed: Coding Level of Care Code Tele Est Pt Level 3 (93674) Complex EM visit Add On G2211 Diagnoses SULY (obstructive sleep apnea) G47.33 HTN (hypertension) I10 Headache R51.9 Assessment & Plan Assessment & Plan (1) SULY (obstructive sleep apnea): Onset Date: ~06/04/25 Comment: Patient made aware for continued coverage of CPAP therapy, documentation of compliance, including a akaj-go-pzoi re-evaluation by the treating physician and objective evidence of adherence (4 hours per night for 70% of nights in a 30-day period), is?required between the 31st and 90th day of therapy.? The patient is in agreement to start CPAP therapy. My office will coordinate a f/u in about 60 days. SLEEP STUDY DATE: 04/23/25 COMPLIANCE VISIT DATE: SUPPLIER: Code(s): G47.33 - Obstructive sleep apnea (adult) (pediatric) Category: Medical (2) HTN (hypertension): Code(s): I10 - Essential (primary) hypertension Category: Medical (3) Headache: Code(s): R51.9 - Headache, unspecified Category: Medical Plan . Medications: New clonidine HCl 0.1 mg PO BEDTIME 90 tabs 0RF
--- OUTSIDE RECORDS SUMMARY | 2025-06-04 18:42 | XMS_ITS | Clinical Summary ---
Author Organization [facility] Address [address] [place] [id number] Care Team Providers Care Compo Conveyor Operator Name Role Phone Unavailable Primary Care Provider [...] Name Priority Date/Time Associated Diagnosis Comments CYTOLOGY EVENT CREW TECHNICIAN CASES ([facility]) Routine 12/24/2012 11:52 AM EDT from Last 3 Months or Most Recently Relevant to Health Maintenance Results * Cytology paper maker cases ([facility]) (12/24/2012 11:52 AM EDT) Final Report [facility] Department of Pathology [address] [place] [address] Cytology Report IMPORTED CASE FROM [employer] Patient Name: HERO SALGADO Date of : 1980 (Age: 32) Med. Rec. #: [id number] Gender: F Taken: 12/24/2012 Received: 12/24/2012 Reported:12/26/2012 Ordering Physician: Darek Beatty M.D. Specimen Received: Cervical/Endocervic al Final Cytologic Diagnosis Cervical/Endocervic al: Thin Prep Pap: Satisfactory for evaluation. Endocervical cells present. Negative for intraepithelial lesion or malignancy. Electronically Signed Out 12/26/2012 Anaid Brock,,CT(ASC P) The above electronic signature indicates that either the pathologist or the claims adjustor has personally performed a microscopic examination and [...] confirmed before definitive therapy. ICD Code(s): V24.2. [facility] Final Diagnosis Cervical/Endocervic al: Thin Prep Pap: Satisfactory for evaluation. Endocervical cells present. Negative for intraepithelial lesion or malignancy. [facility] Clinical History Date of Last Menstrual Period: Unknown [facility] Gross Description Received is a Thin Prep Pap test vial for processing. One Thin Prep slide is prepared and processed. [facility] Papanicolaou smear specimen (specimen) 12/24/2012 11:52 AM EDT 12/24/2012 11:52 AM EDT us Provider Not In System PATHOLOGY/CYTOLOGY ORDERA BLES Final Result [facility] from Last 3 Months or Most Recently Relevant to Health Maintenance
--- OUTSIDE RECORDS SUMMARY | 2025-06-04 18:42 | XMS_ITS | Encounter Summary ---
Author Organization [facility] Address [address] [place] [address] Care Team Providers Care Garment Tag Stringer Name Role Phone Unavailable Primary Care Provider Unavailabl e Encounter Details Date Type Department Care Team (Late st Contact Info) Description 06/01/2015 Scanned Document [facility] at [address] [place] [address] [id number] External, Provider Social History Tobacco Use Types [...]
== END 2025-06-04 16:40 | disposition home or self-care (01) ==
LOC: HO.HMCFM 15:33
PROVIDERS: PCP Nurse Practitioner Family; Visit Provider Nurse Practitioner Family
DX: G47.33 Obstructive sleep apnea (adult) (pediatric) (principal); I10 Essential (primary) hypertension; R51.9 Headache, unspecified

== ENCOUNTER 2025-06-17 06:10 | Day surgery (SDC) | payer OTHER, SELFPAY ==
--- OUTSIDE RECORDS SUMMARY | 2025-05-16 15:38 | XMS_ITS | Encounter Summary ---
Author Organization [facility] and [facility] Address [address] [place] [address] Care Team Providers Care Chief Clerk Name Role Phone Unavailable Primary Care Provider Unavailabl e Encounter Details Date Type Department Care Team (Late st Contact Info) Description 06/01/2015 Scanned Document [facility] at [address] [place] [address] [phone] External, Provider Social History Tobacco Use Types [...]
--- OUTSIDE RECORDS SUMMARY | 2025-05-16 15:38 | XMS_ITS | Clinical Summary ---
Author Organization [facility] Address [address] [place] [phone] Care Team Providers Care Crm Marketing Manager Name Role Phone Unavailable Primary Care [...] 2024 Influenza vaccine 02/21/2025 Covid-19 vaccine series (2024- season) 2025 RSV Immunization (1 - 1-dose [...] Name Priority Date/Time Associated Diagnosis Comments CYTOLOGY MANAGER TALENT MANAGEMENT CASES ([facility]) Routine 12/24/2012 11:52 AM EDT from Last 3 Months or Most Recently Relevant to Health Maintenance Results * Cytology supervisor trust accounts cases ([facility]) (12/24/2012 11:52 AM EDT) Final Report [facility] Department of Pathology [address] [place] [address] Cytology Report IMPORTED CASE FROM [employer] Patient Name: HERO SALGADO Date of : 1980 (Age: 32) Med. Rec. #: [id number] Gender: F Taken: 12/24/2012 Received: 12/24/2012 Reported:12/26/2012 Ordering Physician: Darek Beatty M.D. Specimen Received: Cervical/Endocervic al Final Cytologic Diagnosis Cervical/Endocervic al: Thin Prep Pap: Satisfactory for evaluation. Endocervical cells present. Negative for intraepithelial lesion or malignancy. Electronically Signed Out 12/26/2012 Anaid Brock,,CT(ASC P) The above electronic signature indicates that either the pathologist or the trade facilitator has personally performed a microscopic examination and [...] confirmed before definitive therapy. ICD Code(s): V24.2. [facility] Final Diagnosis Cervical/Endocervic al: Thin Prep Pap: Satisfactory for evaluation. Endocervical cells present. Negative for intraepithelial lesion or malignancy. [facility] Clinical History Date of Last Menstrual Period: Unknown [facility] Gross Description Received is a Thin Prep Pap test vial for processing. One Thin Prep slide is prepared and processed. [facility] Papanicolaou smear specimen (specimen) 12/24/2012 11:52 AM EDT 12/24/2012 11:52 AM EDT us Provider Not In System PATHOLOGY/CYTOLOGY ORDERA BLES Final Result [facility] from Last 3 Months or Most Recently Relevant to Health Maintenance
[2025-06-13 13:49] VITALS: BMI 43.3
[2025-06-17 06:37] VITALS: BMI 43.3
[2025-06-17] MEDS: Lactated Ringers 1,000 ML 100 ML IVCONT (06:43)
[2025-06-17 06:50] VITALS: BP 140/87; PULSE 70; RESP 18; TEMP 36.7; O2SAT 97
[2025-06-17 07:00] LABS: UPreg QC Valid YES
--- NOTE | 2025-06-17 07:15 | HO.ANESPROP2 ---
Documented by User: Myriam Martinez NP 06/16/25 11:44 HPI - Anesthesia Eval Consult details Narrative: 45 yr old female for colonoscopy BMI 43 SULY with noctural desaturations: ? not yet on CPAP PMFSH Active Problems Active Problems: All Active Problems Headache (Acute) HTN (hypertension) (Acute) SULY (obstructive sleep apnea) (Acute ~06/04/25) History of sleep apnea (Acute) Daytime somnolence (Acute) Encounter for general adult medical examination without abnormal findings (Acute ~02/12/25) Family history of breast cancer (Acute) IUD (intrauterine device) in place (Acute) Dizziness (Acute) Mild intermittent asthma (Acute) Current smoker (Acute) Iron deficiency anemia (Acute) S/P partial gastrectomy (Acute) Obesity, morbid, BMI 40.0-49.9 (Acute) Past Medical History Medical History Anemia Sleep apnea HTN (hypertension) ADHD Thyroid disorder Asthma Family History Family History Father Cancer Paternal Aunt Breast cancer Surgical History Surgical History H/O colonoscopy Gastric bypass status for obesity (~2009) Previous section Social History Social History (Updated 01/09/25 @ 11:04 by Ne Mccann MA) Housing: House Are you a primary health care technician to a significant other at home: No Do you presently have visiting nurse or other home services: No Alcohol intake: never Patient Tobacco Use Status: Current everyday Tobacco user Tobacco use type: Cigarette Cigarette Packs Per Day: 1 Cigarettes Per Day: 20 Years Smoked: 32 Smoked in Last 30 Days: Yes e-Cigarette/Vaping Use: Never Used Patient Interested in Nicotine Replacement: No Second Hand Smoke Exposure: No Have you been hit, kicked, punched, or otherwise hurt by someone within the past year? 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 Cognitive needs: No Hearing needs: No Vision needs: Yes (wear glasses) Meds Allergies Allergy/AdvReac Type Severity Reaction Status Date / Time Penicillins Allergy Severe Rash Verified 06/17/25 06:23 Sulfa (Sulfonamide Allergy Severe Rash Verified 06/17/25 06:23 Antibiotics) Home Medications ?Medication ?Instructions ?Recorded ?Confirmed ?Last Taken ?Type Berberine w/ [place] cinnamon PO 04/22/25 06/04/25 Unknown History Danish ginseng root extract 560 mg 560 mg PO DAILY 04/22/25 06/13/25 Unknown History capsule biotin 5,000 mcg disintegrating 10,000 mcg PO DAILY 04/22/25 06/13/25 Unknown History tablet magnesium glycinate 120 mg (as 120 mg PO DAILY 04/22/25 06/13/25 Unknown History glycinate) capsule melatonin 5 mg capsule 5 mg PO BEDTIME 04/22/25 06/13/25 Unknown History neuroptene perfect pressure PO 04/22/25 06/04/25 Unknown History omega 4-vfy-wvk-fish oil 60 mg-90 1 cap PO DAILY 04/22/25 06/13/25 06/10/25 History mg-500 mg capsule (Fish Oil) thyroid support PO 04/22/25 06/04/25 Unknown History Exam Height,Weight and Vital Signs: Height 4 ft 10 in Weight 93.894 kg Documented by User: Anabela Vargas DO 06/17/25 07:37 HPI - Anesthesia Eval Consult details Narrative: 45 yr old female for colonoscopy BMI 43 SULY with noctural desaturations: not yet on CPAP [facility] Past Medical History Medical History Anemia Sleep apnea HTN (hypertension) ADHD Thyroid disorder Asthma Family History Family History Father Cancer Paternal Aunt Breast cancer Family history of problems with anesthesia: No Surgical History Surgical History H/O colonoscopy Gastric bypass status for obesity (~2009) Previous section History of Problems with Anesthesia: No Social History Social History (Updated 01/09/25 @ 11:04 by Ne Mccann MA) Housing: House Are you a primary health care technician to a significant other at home: No Do you presently have visiting nurse or other home services: No Alcohol intake: never Patient Tobacco Use Status: Current everyday Tobacco user Tobacco use type: Cigarette Cigarette Packs Per Day: 1 Cigarettes Per Day: 20 Years Smoked: 32 Smoked in Last 30 Days: Yes e-Cigarette/Vaping Use: Never Used Patient Interested in Nicotine Replacement: No Second Hand Smoke Exposure: No Have you been hit, kicked, punched, or otherwise hurt by someone within the past year? 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 Cognitive needs: No Hearing needs: No Vision needs: Yes (wear glasses) Meds Allergies Allergy/AdvReac Type Severity Reaction Status Date / Time Penicillins Allergy Severe Rash Verified 06/17/25 06:23 Sulfa (Sulfonamide Allergy Severe Rash Verified 06/17/25 06:23 Antibiotics) Home Medications ?Medication ?Instructions ?Recorded ?Confirmed ?Last Taken ?Type Berberine w/ [place] cinnamon PO 04/22/25 06/04/25 Unknown History Danish ginseng root extract 560 mg 560 mg PO DAILY 04/22/25 06/13/25 Unknown History capsule biotin 5,000 mcg disintegrating 10,000 mcg PO DAILY 04/22/25 06/13/25 Unknown History tablet magnesium glycinate 120 mg (as 120 mg PO DAILY 04/22/25 06/13/25 Unknown History glycinate) capsule melatonin 5 mg capsule 5 mg PO BEDTIME 04/22/25 06/13/25 Unknown History neuroptene perfect pressure PO 04/22/25 06/04/25 Unknown History omega 3-nrg-jgv-fish oil 60 mg-90 1 cap PO DAILY 04/22/25 06/13/25 06/10/25 History mg-500 mg capsule (Fish Oil) thyroid support PO 04/22/25 06/04/25 Unknown History Exam Exam Date and Time: 06/17/25 0715 Height,Weight and Vital Signs: Height 4 ft 10 in Weight 93.894 kg Vital Signs Temperature 98.1 F 06/17/25 06:50 Pulse Rate 70 06/17/25 06:50 Respiratory Rate 18 06/17/25 06:50 Blood Pressure 140/87 H 06/17/25 06:50 Pulse Oximetry 97 06/17/25 06:50 Oxygen Delivery Method Room Air 06/17/25 06:50 Temperature 98.1 F 06/17/25 06:50 Pulse Rate 70 06/17/25 06:50 Respiratory Rate 18 06/17/25 06:50 Blood Pressure 140/87 H 06/17/25 06:50 Pulse Oximetry 97 06/17/25 06:50 Oxygen Delivery Method Room Air 06/17/25 06:50 Airway Mallampati Class: II TM Dist: <=3cm Neck ROM: Full Loose/Missing/Broken Teeth: Yes (broken molar right upper jaw) Heart: S1S2 Lungs: CTAB Assessment and Plan Assessment Anesthesia Assessment: Anesthesia Plan Discussed and Chart Reviewed Final Anesthetic Review Family History of Problems with Anesthesia: No History of Problems with Anesthesia: No NPO: Yes ASA Class: III Final Preanesthetic Review: No Changes in Pt Med Stat, Meds/Allgs Chart Reviewed, Consent Obtained/Reviewed and Anes Risks/Benef Reviewed Patient Risk: Intermediate Procedure Risk: Low Anesthetic Plan Anesthetic Plan: MAC: and Agree w/ Assess. and Plan Disposition: Standard PACU
--- NOTE | 2025-06-17 07:48 | MHC.SHP ---
Pre-Procedural Eval Section A - 24 Hr Update-Section A only Date of Service: 06/17/25 Section B - Complete if H&P > 30 days Chief Complaint: Encounter for screening for malignant neoplasm of Details of Present Illness: ADHD Thyroid disorder Asthma Surgical History (Updated 04/22/25 @ 12:08 by OLEG Lama) H/O colonoscopy Gastric bypass status for obesity (~2009) Previous section Present Medications: see Short Stay Collaborative assessment Allergies: Allergies Allergy/AdvReac Type Severity Reaction Status Date / Time Penicillins Allergy Severe Rash Verified 06/17/25 06:23 Sulfa (Sulfonamide Allergy Severe Rash Verified 06/17/25 06:23 Antibiotics) Review of Systems Review of Systems Comment: Ten point ROS negative Exam Exam Comment: Gen appear: No acute distress HEENT: no icterus Chest: No overt resp distress Abd: soft, nontender, nondistended Psych: Stable affect, answering questions appropriately Neuro: A/Ox3 noted to move all extremities spontaneously Ext: no peripheral edema Plan Diagnosis/Plan: Unchanged I have reviewed the history and physical and performed a pertinent physical examination on my patient. No changes have occurred unless specified. Time Spent With Patient Time: Total time managing care of this patient today ____ minutes.
[2025-06-17 08:24] VITALS: BP 114/70; PULSE 70; RESP 12; TEMP 36.1; O2SAT 97
--- NOTE | 2025-06-17 08:28 | P.OPN-COLO_ITS ---
Colonoscopy Operative Note Operative Note Date of Service: 06/17/25 Narrative: Procedure: Colonoscopy Indication: Anemia Endoscopist: Carmen Rose MD Anesthesia Provider: Malvin Ortega CRNA Anesthesia type: MAC Instrument: Olympus [id number] Consent: Indication, risks vs benefits, and alternatives were discussed with the patient who gave written informed consent to proceed. EKG, pulse, pulse oximetry and blood pressure were monitored throughout the procedure. Please see anesthesia flowsheet. Procedure: The patient was brought to the procedure room and placed in the left lateral decubitus position. An abdominal binder was affixed to the lower abdomen. IV medications were administered by the anesthesia provider in attendance. A digital rectal exam was performed which was normal. A distal attachment cap was affixed to the tip of the colonoscope which was then inserted through the anus and advanced through the colon to the cecum at 85 cm. Appendiceal orifice and ileocecal valve were identified. Mucosa was carefully examined under high definition white light as the instrument was slowly withdrawn in a retrograde panoramic fashion. Retroflexion was performed in rectum. The procedure was somewhat difficult and required transverse pressure to get into cecum. There were no immediate obvious complications. The quality of the prep was BBPS: 3+3+3 = adequate Withdrawal time 15 minutes. Limitations: No limitations. Findings: Mucosa: Normal to cecum. Protruding lesions: * 1 sessile polyp of size 3 mm in sigmoid colon. Cold snare polypectomy was performed. The polyp was completely removed and retrieved. * Large internal hemorrhoids without stigmata of recent bleeding. Excavated lesions: * Mild diverticulosis of sigmoid colon. Impression: 1. Normal colon mucosa 2. Total of 1 polyp removed 3. Diverticulosis 4. External hemorrhoids Recommendations: - Follow path results. - Repeat colonoscopy in 7-10 years if polyp is an adenoma or 5 years if SSL.
[2025-06-17 08:29] VITALS: BP 105/65; PULSE 63; RESP 19; O2SAT 99
[2025-06-17 08:34] VITALS: BP 125/79; PULSE 70; RESP 19; O2SAT 99
[2025-06-17 08:39] VITALS: BP 117/38; PULSE 66; RESP 17; O2SAT 97
[2025-06-17 08:54] VITALS: BP 129/78; PULSE 63; RESP 16; TEMP 36.8; O2SAT 99
== END 2025-06-17 09:15 | disposition home or self-care (01) ==
PROVIDERS: Nurse Practitioner; PCP Nurse Practitioner Family; Visit Provider Internal Medicine
PROC: 0DJD8ZZ Inspection of Lower Intestinal Tract, Via Natural or Artificial Opening Endoscopic (ICD-10-PCS; CPT 45378; principal; 2025-06-17 07:30)
DX: Z12.11 Encounter for screening for malignant neoplasm of colon (principal); D12.5 Benign neoplasm of sigmoid colon; K57.30 Diverticulosis of large intestine without perforation or abscess without bleeding; K64.8 Other hemorrhoids; K64.4 Residual hemorrhoidal skin tags; K59.04 Chronic idiopathic constipation; D50.9 Iron deficiency anemia, unspecified; E07.9 Disorder of thyroid, unspecified; G47.33 Obstructive sleep apnea (adult) (pediatric); J45.909 Unspecified asthma, uncomplicated; F90.9 Attention-deficit hyperactivity disorder, unspecified type; Z90.3 Acquired absence of stomach [part of]; Z79.899 Other long term (current) drug therapy; Z88.0 Allergy status to penicillin; Z88.2 Allergy status to sulfonamides; Z98.84 Bariatric surgery status; F17.210 Nicotine dependence, cigarettes, uncomplicated
CPT/HCPCS: 45385; 81025; 88305; J2003; J2704

== ENCOUNTER → 2025-06-17 06:10 | Outpatient (BNV) | payer OTHER, SELFPAY | PROVIDERS: PCP Nurse Practitioner Family; Visit Provider Internal Medicine | DX: D64.9 Anemia, unspecified (principal); K63.5 Polyp of colon; K57.30 Diverticulosis of large intestine without perforation or abscess without bleeding; K64.8 Other hemorrhoids | CPT/HCPCS: 45385 ==

== ENCOUNTER 2025-06-18 08:28 | Outpatient (REF) | payer OTHER, SELFPAY ==
--- OUTSIDE RECORDS SUMMARY | 2025-06-18 08:52 | XMS_ITS | Encounter Summary ---
Author Organization [facility] Address [address] [place] [address] Care Team Providers Care Rn Clinical Quality Name Role Phone Unavailable Primary Care Provider Unavailabl e Encounter Details Date Type Department Care Team (Late st Contact Info) Description 06/01/2015 Scanned Document [facility] at [address] [place] [address] [id number] External, Provider Social History Tobacco Use Types [...]
--- OUTSIDE RECORDS SUMMARY | 2025-06-18 08:52 | XMS_ITS | Clinical Summary ---
Author Organization [facility] Address [address] [place] [id number] Care Team Providers Care Body Mechanic Name Role Phone Unavailable Primary Care Provider [...] Name Priority Date/Time Associated Diagnosis Comments CYTOLOGY TRAFFIC COURT MAGISTRATE CASES ([facility]) Routine 12/24/2012 11:52 AM EDT from Last 3 Months or Most Recently Relevant to Health Maintenance Results * Cytology embroidery patternmaker cases ([facility]) (12/24/2012 11:52 AM EDT) Final Report The Department of Pathology [address] [place] [address] Cytology Report IMPORTED CASE FROM [employer] Patient Name: HERO SALGADO Date of : 1980 (Age: 32) Med. Rec. #: [id number] Gender: F Taken: 12/24/2012 Received: 12/24/2012 Reported:12/26/2012 Ordering Physician: Darek Beatty M.D. Specimen Received: Cervical/Endocervic al Final Cytologic Diagnosis Cervical/Endocervic al: Thin Prep Pap: Satisfactory for evaluation. Endocervical cells present. Negative for intraepithelial lesion or malignancy. Electronically Signed Out 12/26/2012 Anaid Brock,,CT(ASC P) The above electronic signature indicates that either the pathologist or the community development manager has personally performed a microscopic examination and [...]
[2025-06-18 09:27] LABS: Hematocrit 44.2 % (37.0-47.0); Hemoglobin 14.5 g/dl (12.0-16.0); Mean Corpuscular HGB Conc 32.8 g/dl (31.0-35.0); Mean Corpuscular Hemoglobin 27.6 pg (27.0-33.0); Mean Corpuscular Volume 84.0 fL (80.0-98.0); NRBC Abs Auto 0.000 X10*3/uL (0.0-0.012); NRBC Pct Auto 0.0 /100WBC (0.0-0.2); Platelet Count 274 X10*3/uL (160-400); Red Blood Count 5.26 X10*6/uL (4.20-5.50); White Blood Count 9.2 X10*3/uL (4.8-10.8)
[2025-06-18 09:45] LABS: Iron 78 mcg/dL (30-160); Percent Iron Saturation 25 % (15-50); Total Iron Binding Capacity 311 mcg/dL (228-428); Unsaturated Iron Binding 233 ug/dL
[2025-06-18 10:02] LABS: Ferritin 33 ng/mL (10-250)
[2025-06-18 10:16] LABS: Folate 10.3 ng/mL (> or = 4.0); Vitamin B12 986 pg/mL (200-900)
== END 2025-06-18 08:29 | disposition home or self-care (01) ==
LOC: HO.LAB 08:28
PROVIDERS: Visit Provider Nurse Practitioner Family
DX: Z13.29 Encounter for screening for other suspected endocrine disorder (principal); Z13.21 Encounter for screening for nutritional disorder; Z90.3 Acquired absence of stomach [part of]; D50.9 Iron deficiency anemia, unspecified
CPT/HCPCS: 36415; 82306; 82607; 82728; 82746; 83540; 84443; 85027

== ENCOUNTER 2025-07-03 12:38 | Emergency (ER) | payer OTHER, SELFPAY ==
--- NOTE | ~2025-07-03 | XR_ITS ---
EXAMINATION: XR CHEST CLINICAL INFORMATION: CP COMPARISON: None available. TECHNIQUE: PA and lateral views FINDINGS: No hyperinflation. No consolidation, pleural effusion or pneumothorax. Cardiomediastinal silhouette size is normal. Mild multilevel thoracolumbar stenosis. Kyphotic deformity lower thoracic spine. Patient's large body habitus. XR/XR chest 2V IMPRESSION: No acute airspace disease. Kyphotic deformity, lower thoracic spine/thoracolumbar junction. Electronically signed by: Shine Garcia MD 07/03/2025 01:51 PM EST RP
--- NOTE | 2025-07-03 12:51 | ECG_ITS ---
Test Reason : cp Blood Pressure : */* mmHG Vent. Rate : 61 BPM Atrial Rate : 61 BPM P-R Int : 182 ms QRS Dur : 70 ms QT Int : 404 ms P-R-T Axes : 72 16 39 degrees QTcB Int : 406 ms Normal sinus rhythm Low voltage QRS Borderline ECG No previous ECGs available Referred By: Generic ED Physician Electronically Signed By: BIRDIE HOGAN MD
[2025-07-03 13:13] VITALS: BP 199/88; PULSE 72; RESP 18; TEMP 36.9; O2SAT 94; BMI 42.7
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
[2025-07-03 13:36] LABS: MANUAL DIFF FLAG NO
[2025-07-03 13:38] LABS: Hematocrit 42.6 % (37.0-47.0); Hemoglobin 14.1 g/dl (12.0-16.0); Imm Gran Abs Auto 0.04 X10*3/uL (0.00-0.03); Imm Gran Pct Auto 0.4 % (0.0-0.4); Lymphocytes Absolute Auto 2.4 X10*3/uL (1.2-4.9); Mean Corpuscular HGB Conc 33.1 g/dl (31.0-35.0); Mean Corpuscular Hemoglobin 28.0 pg (27.0-33.0); Mean Corpuscular Volume 84.7 fL (80.0-98.0); NRBC Abs Auto 0.000 X10*3/uL (0.0-0.012); NRBC Pct Auto 0.0 /100WBC (0.0-0.2); Platelet Count 281 X10*3/uL (160-400); Red Blood Count 5.03 X10*6/uL (4.20-5.50); White Blood Count 10.7 X10*3/uL (4.8-10.8)
[2025-07-03 13:52] LABS: INTERNATIONAL NORM RATIO 0.8 (0.9-1.1); Prothrombin Time 10.2 SEC (11.2-13.5)
[2025-07-03 13:57] LABS: Alanine Aminotransferase 20 U/L (0-31); Albumin Level 4.3 g/dL (3.5-5.0); Alkaline Phosphatase 68 U/L (39-117); Anion Gap 11 (12-20); Aspartate Amino Transferase 28 U/L (5-31); Blood Urea Nitrogen 17 mg/dL (9-16); Calcium 8.9 mg/dL (8.4-10.2); Carbon Dioxide 24 mmol/L (22-29); Chloride 110 mmol/L (96-108); Creatinine Clr Calc Pharmacy 131.4; Estimated Glomerular Filt Rate > 60; Lipase 49 U/L (8-78); Magnesium 2.0 mg/dL (1.6-2.6); Potassium 4.5 mmol/L (3.3-5.1); Sodium 140 mmol/L (135-145); Total Protein 7.2 g/dL (6.5-8.0)
[2025-07-03 14:06] LABS: Troponin-I High Sensitivity < 2.7 ng/L (<3.5-17.0)
[2025-07-03 14:35] LABS: Resp Syncy Virus RNA Qual PCR NEGATIVE (Negative); SARS COV2 PCR INHOUSE NEGATIVE (Negative)
[2025-07-03 14:39] VITALS: BP 199/88
[2025-07-03 14:44] VITALS: BP 157/92; PULSE 60; RESP 14; TEMP 37.3; O2SAT 95
[2025-07-03 14:59] VITALS: BP 157/92; PULSE 60; RESP 14; TEMP 37.3; O2SAT 95
== END 2025-07-03 15:04 | disposition home or self-care (01) ==
PROVIDERS: Physician Assistant Medical; Emergency Provider Emergency Medicine; PCP Nurse Practitioner Family
DX: R07.89 Other chest pain (principal); F17.210 Nicotine dependence, cigarettes, uncomplicated; Z79.899 Other long term (current) drug therapy; Z03.818 Encounter for observation for suspected exposure to other biological agents ruled out
CPT/HCPCS: 36415; 71046; 80048; 80076; 83690; 83735; 84484; 85025; 85610; 87637; 93005; 96372; 99284; 99285; J1885; J8540

== ENCOUNTER → 2025-07-03 12:51 | Outpatient (BNV) | payer OTHER, SELFPAY | PROVIDERS: Emergency Provider Emergency Medicine; PCP Nurse Practitioner Family; Visit Provider Internal Medicine Cardiovascular Disease | DX: R07.9 Chest pain, unspecified (principal) | CPT/HCPCS: 93010 ==

== ENCOUNTER → 2025-07-03 13:17 | Outpatient (BNV) | payer OTHER, SELFPAY | PROVIDERS: Emergency Provider Emergency Medicine; PCP Nurse Practitioner Family; Visit Provider Radiology Diagnostic Radiology | DX: R07.9 Chest pain, unspecified (principal) | CPT/HCPCS: 71046 ==

== ENCOUNTER 2025-07-04 08:22 | Outpatient (AMB) | payer OTHER, SELFPAY ==
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
[2025-07-04 08:27] VITALS: BP 142/80; PULSE 75; RESP 14; TEMP 36.5; O2SAT 98; BMI 43.5
== END 2025-07-04 08:50 | disposition home or self-care (01) ==
LOC: HO.HMCFM 08:23
PROVIDERS: PCP Nurse Practitioner Family; Visit Provider Nurse Practitioner Family
DX: Z51.89 Encounter for other specified aftercare (principal); G47.33 Obstructive sleep apnea (adult) (pediatric); I10 Essential (primary) hypertension; G47.00 Insomnia, unspecified; R07.89 Other chest pain